=== PATIENT | male | born 1980 | race Caucasian/White ===

== ENCOUNTER 2017-05-10 21:20 | Observation (INO) | payer MEDICARE, MEDICAID ==
[2017-05-10] MEDS ORDERED: Albuterol/Ipratropium 3.0-0.5 MG/3 ML Neb Soln NEB ONE (21:39)
[2017-05-10] MEDS ORDERED: Sodium Chloride 0.9% 10 ML Syringe FLUSH PRN (21:40)
[2017-05-10] MEDS ORDERED: methylPREDNISolone Sodium Succinate 125 MG/2 ML SDV IVPUSH ONE (22:24)
[2017-05-10 22:34] LABS: CHLORIDE,CL 104 mmol/L (98-107); SODIUM,NA 140 mmol/L (136-145)
--- NOTE | 2017-05-10 23:10 | EDM.PDOC ---
ED HPI GENERAL MEDICAL PROBLEM - General Chief Complaint: Respiratory Problem Stated Complaint: wheezing, gen. weakness Time Seen by Provider: 05/10/17 21:21 - History of Present Illness INITIAL COMMENTS - FREE TEXT/NARRATIVE: Patient is brought to the emergency room at [facility] with shortness of breath, raspy cough, and wheezing. It is unclear when his symptoms exactly started. His old records state that he does have a chronic cough. The patient was seen at [facility] in [place] today for these same symptoms. The provider's notes from today's visit have not been completed so I'm unsure what the patient is diagnosed with and/or treatments. I did review his laboratory work from [place] which looked to be normal. The patient's influenza swab was also normal today. The father states that the patient's symptoms have progressively gotten worse throughout the day today. The patient does have a history of mild heart failure and a history of valve replacement. The patient's last echocardiogram showed an EF of 45%, therefore cardiology apparently was going to start the patient on Coreg and lisinopril. In reviewing [place] notes, it is unclear whether or not the patient has been started on these medications. The patient's Residential medication list states he is currently not taking Lisinopril, but is taking the Coreg at a dose of 3.125 BID. It is possible that the Coreg is contributing to the patient's a wheezing. No chest pain. No abdominal complaints. No edema. Lungs do not sound wet at this point. - Related Data Allergies Allergy/AdvReac Type Severity Reaction Status Date / Time pollen extracts Allergy Cannot Verified 05/10/17 22:38 Remember Home Meds: Home Meds Acetaminophen/Diphenhydramine [Pain Relief Pm Caplet] 1 each PO BEDTIME [History] Amoxicillin 2,000 mg PO ASDIRECTED PRN 05/10/17 [History] Aspirin [Halfprin] 81 mg PO DAILY 05/10/17 [History] Benzoyl Peroxide [Acne Cleansing Bar] 1 each TP DAILY 05/10/17 [History] Cephalexin 500 mg PO BID 05/10/17 [History] Docusate Sodium [Doc-Q-Lace] 100 mg PO DAILY 05/10/17 [History] Esomeprazole [NexIUM] 40 mg PO DAILY 05/10/17 [History] Levothyroxine [Sythroid] 100 mcg PO DAILY 05/10/17 [History] Loratadine 10 mg PO DAILY 05/10/17 [History] Multivitamins/Iron/Folic Acid [Cerovite Advanced Formula Tablet] 1 tab PO DAILY 05/10/17 [History] Ranitidine [Zantac] 75 mg PO BID 05/10/17 [History] Warfarin Sodium [Jantoven] 2.5 mg PO ASDIRECTED 05/10/17 [History] Warfarin Sodium [Jantoven] 5 mg PO ASDIRECTED 05/10/17 [History] Past Medical History HEENT History: Reports: Allergic Rhinitis, Cataract, Hard of Hearing, Other ( See Below) Other HEENT History: myopia, anisometropia-both, astigmatism Cardiovascular History: Reports: Other (See Below) Other Cardiovascular History: mild left ventricular systolic dysfunction, PVCs Gastrointestinal History: Reports: Other (See Below) Other Gastrointestinal History: small antral ulcer and duodentitis, epigastric hernia, dysphagia Psychiatric History: Reports: Developmental Delay, Other (See Below) Other Psychiatric History: impulse control d/o, downs syndrome Endocrine/Metabolic History: Reports: Hypothyroidism Hematologic History: Reports: Polycythemia Dermatologic History: Reports: Other (See Below) Other Dermatologic History: lipomatosis, acne vulgaris - Past Surgical History HEENT Surgical History: Reports: Other (See Below) Other HEENT Surgeries/Procedures: I & D left eyelid abscess, Cardiovascular Surgical History: Reports: Valve Replacement, Other (See Below) Other Cardiovascular Surgeries/Procedures: complete atrioventricular canal repair GI Surgical History: Reports: EGD Male Surgical History: Reports: Other (See Below) Other Male Surgeries/Procedures: testicular surgery for undescended testicles Social & Family History - Tobacco Use Smoking Status *Q: Never Smoker - Recreational Drug Use Recreational Drug Use: No ED ROS GENERAL - Review of Systems Review Of Systems: See Below Constitutional: Reports: Fever. Denies: Chills, Weakness, Decreased Appetite Respiratory: Reports: Shortness of Breath, Wheezing, Cough. Denies: Sputum Cardiovascular: Denies: Chest Pain, Palpitations GI/Abdominal: Denies: Abdominal Pain, Nausea, Vomiting Skin: Reports: No Symptoms Neurological: Reports: No Symptoms ED EXAM, GENERAL - Physical Exam Exam: See Below Exam Limited By: No Limitations General Appearance: Alert, No Apparent Distress Respiratory/Chest: No Respiratory Distress, Chest Non-Tender, Rhonchi, Wheezing Cardiovascular: Normal Peripheral Pulses, Regular Rate, Rhythm Peripheral Pulses: 2+: Radial (L), Radial (R) GI/Abdominal: Normal Bowel Sounds, Soft, Non-Tender Neurological: Alert, Normal Cognition (for developmental level) Skin Exam: Warm, Dry, Intact, Normal Color, No Rash Course - Vital Signs Last Recorded V/S: Last Vital Signs Temp 37.4 C 05/10/17 21:33 Pulse 72 05/10/17 21:33 Resp 24 H 05/10/17 21:33 BP 94/56 L 05/10/17 21:33 Pulse Ox 91 L 05/10/17 21:33 - Orders/Labs/Meds Orders: Active Orders 24 hr Category Date Time Status Admission Status [Patient Status] [ADT] Routine ADT 05/10/17 22:52 Active RT Aerosol Therapy [RC] ASDIRECTED Care 05/10/17 21:40 Active Chest 2V [CR] Stat Exams 05/10/17 21:39 Taken CULTURE BLOOD [BC] Stat Lab 05/10/17 21:30 Results CULTURE BLOOD [BC] Stat Lab 05/10/17 21:45 Received Sodium Chloride 0.9% [Saline Flush] Med 05/10/17 21:40 Active 10 ml FLUSH ASDIRECTED PRN Blood Culture x2 Reflex Set [OM.PC] Stat Oth 05/10/17 21:39 Ordered Peripheral IV Insertion Adult [OM.PC] Routine Oth 05/10/17 21:40 Ordered Medication Orders Sodium Chloride (Saline Flush) 10 ml FLUSH ASDIRECTED PRN PRN Reason: Keep Vein Open Last Admin: 05/10/17 22:43 Dose: 10 ml Labs: Laboratory Tests 05/10/17 05/10/17 05/10/17 Range/Units 21:45 21:45 21:45 WBC 4.2 (4.0-10.0) x10^3/uL RBC 4.78 (4.5-6.0) x10^6/uL Hgb 15.8 (14.0-18.0) g/dL Hct 45.1 (40.0-52.0) % MCV 94.4 H (78.0-93.0) fL MCH 33.1 H (26.0-32.0) pg MCHC 35.0 (32.0-36.0) g/dL RDW Coeff of Laurie 14.5 (10.0-15.0) % Plt Count 163 (130-400) x10^3/uL Neut % (Auto) 67.5 (50.0-80.0) % Lymph % (Auto) 18.8 L (25.0-50.0) % Garland % (Auto) 12.5 H (2.0-11.0) % Eos % (Auto) 1.0 (0.0-4.0) % Baso % (Auto) 0.2 (0.2-1.2) % Sodium 140 (136-145) mmol/L Potassium 4.2 (3.5-5.1) mmol/L Chloride 104 (98-107) mmol/L Carbon Dioxide 29 (21-32) mmol/L BUN 19 H (7-18) mg/dL Creatinine 1.2 (0.70-1.30) mg/dL Est Cr Clr Drug Dosing TNP Estimated GFR (MDRD) > 60 Glucose 105 (74-106) mg/dL Lactic Acid 0.6 (0.4-2.0) mmol/L Calcium 8.7 (8.5-10.1) mg/dL Corrected Calcium 9.26 (8.5-10.1) mg/dL Total Bilirubin 0.6 (0.2-1.0) mg/dL AST 30 (15-37) U/L ALT 39 (16-63) U/L Alkaline Phosphatase 96 (46-116) U/L C-Reactive Protein 5.5 H (<=0.9) mg/dL NT-Pro-B Natriuret Pep 286 H (<=125) pg/mL Total Protein 6.6 (6.4-8.2) g/dL Albumin 3.3 L (3.4-5.0) g/dL Globulin 3.3 Albumin/Globulin Ratio 1.00 Urine Color (YELLOW) Urine Appearance (CLEAR) Urine pH (5.0-8.0) Ur Specific Allen Urine Protein (NEGATIVE) mg/dL Urine Glucose (UA) (NEGATIVE) mg/dL Urine Ketones (NEGATIVE) mg/dL Urine Occult Blood (NEGATIVE) Urine Nitrite (NEGATIVE) Urine Bilirubin (NEGATIVE) Urine Urobilinogen (0.2) EU/dL Ur Leukocyte Esterase (NEGATIVE) Urine RBC (NOT SEEN) /HPF Urine WBC (NOT SEEN) /HPF Ur Squamous Epith Cells (NEGATIVE) /HPF Urine Bacteria (NEGATIVE) /HPF Urine Mucus (NEGATIVE) /LPF 05/10/17 Range/Units 22:23 WBC (4.0-10.0) x10^3/uL RBC (4.5-6.0) x10^6/uL Hgb (14.0-18.0) g/dL Hct (40.0-52.0) % MCV (78.0-93.0) fL MCH (26.0-32.0) pg MCHC (32.0-36.0) g/dL RDW Coeff of Laurie (10.0-15.0) % Plt Count (130-400) x10^3/uL Neut % (Auto) (50.0-80.0) % Lymph % (Auto) (25.0-50.0) % Garland % (Auto) (2.0-11.0) % Eos % (Auto) (0.0-4.0) % Baso % (Auto) (0.2-1.2) % Sodium (136-145) mmol/L Potassium (3.5-5.1) mmol/L Chloride (98-107) mmol/L Carbon Dioxide (21-32) mmol/L BUN (7-18) mg/dL Creatinine (0.70-1.30) mg/dL Est Cr Clr Drug Dosing Estimated GFR (MDRD) Glucose (74-106) mg/dL Lactic Acid (0.4-2.0) mmol/L Calcium (8.5-10.1) mg/dL Corrected Calcium (8.5-10.1) mg/dL Total Bilirubin (0.2-1.0) mg/dL AST (15-37) U/L ALT (16-63) U/L Alkaline Phosphatase (46-116) U/L C-Reactive Protein (<=0.9) mg/dL NT-Pro-B Natriuret Pep (<=125) pg/mL Total Protein (6.4-8.2) g/dL Albumin (3.4-5.0) g/dL Globulin Albumin/Globulin Ratio Urine Color Yellow (YELLOW) Urine Appearance Clear (CLEAR) Urine pH 7.0 (5.0-8.0) Ur Specific Allen 1.010 Urine Protein Negative (NEGATIVE) mg/dL Urine Glucose (UA) Negative (NEGATIVE) mg/dL Urine Ketones Negative (NEGATIVE) mg/dL Urine Occult Blood Negative (NEGATIVE) Urine Nitrite Negative (NEGATIVE) Urine Bilirubin Negative (NEGATIVE) Urine Urobilinogen 0.2 (0.2) EU/dL Ur Leukocyte Esterase Negative (NEGATIVE) Urine RBC 0-5 (NOT SEEN) /HPF Urine WBC 0-5 (NOT SEEN) /HPF Ur Squamous Epith Cells Not seen (NEGATIVE) /HPF Urine Bacteria Rare (NEGATIVE) /HPF Urine Mucus Not seen (NEGATIVE) /LPF Meds: Medications Generic Name Dose Route Start Last Admin Trade Name Freq PRN Reason Stop Dose Admin Sodium Chloride 10 ml 05/10/17 21:40 05/10/17 22:43 Saline Flush FLUSH 10 ml ASDIRECTED PRN Administration Keep Vein Open Discontinued Medications Generic Name Dose Route Start Last Admin Trade Name Freq PRN Reason Stop Dose Admin Albuterol/Ipratropium 3 ml 05/10/17 21:39 05/10/17 21:44 Duoneb 3.0-0.5 Mg/3 Ml NEB 05/10/17 21:40 3 ml ONETIME ONE Administration Methylprednisolone Sodium Succinate 125 mg 05/10/17 22:24 05/10/17 22:42 Solu-Medrol IVPUSH 05/10/17 22:25 125 mg ONETIME ONE Administration Departure - Departure Time of Disposition: 23:11 Disposition: Refer to Observation Condition: Good Clinical Impression: Hypoxia, Wheezing - Discharge Information - Problem List Review Problem List Initiated/Reviewed/Updated: Yes - My Orders Last 24 Hours: My Active Orders 05/10/17 21:30 CULTURE BLOOD [BC] Stat 05/10/17 21:39 Chest 2V [CR] Stat Blood Culture x2 Reflex Set [OM.PC] Stat 05/10/17 21:40 RT Aerosol Therapy [RC] ASDIRECTED Sodium Chloride 0.9% [Saline Flush] 10 ml FLUSH ASDIRECTED PRN Peripheral IV Insertion Adult [OM.PC] Routine 05/10/17 21:45 CULTURE BLOOD [BC] Stat 05/10/17 22:52 Admission Status [Patient Status] [ADT] Routine - Assessment/Plan Admission H&P: Please use this note as an admission H&P Last 24 Hours: My Active Orders 05/10/17 21:30 CULTURE BLOOD [BC] Stat 05/10/17 21:39 Chest 2V [CR] Stat Blood Culture x2 Reflex Set [OM.PC] Stat 05/10/17 21:40 RT Aerosol Therapy [RC] ASDIRECTED Sodium Chloride 0.9% [Saline Flush] 10 ml FLUSH ASDIRECTED PRN Peripheral IV Insertion Adult [OM.PC] Routine 05/10/17 21:45 CULTURE BLOOD [BC] Stat 05/10/17 22:52 Admission Status [Patient Status] [ADT] Routine
[2017-05-11] MEDS: Albuterol/Ipratropium 3.0-0.5 MG/3 ML Neb Soln NEB SCH ×4 (00:17→11:05)
--- NOTE | 2017-05-11 02:39 | PCM.HP ---
H&P History of Present Illness - General Date of Service: 05/10/17 Admit Problem/Dx: Admission Diagnosis/Problem Admission Diagnosis/Problem Hypoxia Wheezing Source of Information: Family, Old Records, RN, RN Notes Reviewed History Limitations: Reports: No Limitations - History of Present Illness Initial Comments - Free Text/Narative: Patient is brought to the emergency room at [facility] with shortness of breath, raspy cough, and wheezing. It is unclear when his symptoms exactly started. His old records state that he does have a chronic cough. The patient was seen at [facility] in [place] [employer] today for these same symptoms. The provider's notes from today's visit have not been completed so I'm unsure what the patient is diagnosed with and/or treatments. I did review his laboratory work from [place] which looked to be normal. The patient's influenza swab was also normal today. The father states that the patient's symptoms have progressively gotten worse throughout the day today. The patient does have a history of mild heart failure and a history of valve replacement. The patient's last echocardiogram showed an EF of 45%, therefore cardiology apparently was going to start the patient on Coreg and lisinopril. In reviewing [place] notes, it is unclear whether or not the patient has been started on these medications. The patient's [facility] medication list states he is currently not taking Lisinopril, but is taking the Coreg at a dose of 3.125 BID. It is possible that the Coreg is contributing to the patient's a wheezing. No chest pain. No abdominal complaints. No edema. Lungs do not sound wet at this point. Patient is not exhibiting any signs of angioedema. Onset of Symptoms: Reports: Unknown/Unsure - Related Data Allergies/Adverse Reactions: Allergies Allergy/AdvReac Type Severity Reaction Status Date / Time pollen extracts Allergy Cannot Verified 05/10/17 22:38 Remember Home Medications: Home Meds Acetaminophen/Diphenhydramine [Pain Relief Pm Caplet] 1 each PO BEDTIME [History] Amoxicillin 2,000 mg PO ASDIRECTED PRN 05/10/17 [History] Aspirin [Halfprin] 81 mg PO DAILY 05/10/17 [History] Benzoyl Peroxide [Acne Cleansing Bar] 1 each TP DAILY 05/10/17 [History] Carvedilol [Coreg] 3.125 mg PO BID 05/10/17 [History] Cephalexin 500 mg PO BID 05/10/17 [History] Docusate Sodium [Doc-Q-Lace] 100 mg PO DAILY 05/10/17 [History] Esomeprazole [NexIUM] 40 mg PO DAILY 05/10/17 [History] Levothyroxine [Sythroid] 100 mcg PO DAILY 05/10/17 [History] Loratadine 10 mg PO DAILY 05/10/17 [History] Multivitamins/Iron/Folic Acid [Cerovite Advanced Formula Tablet] 1 tab PO DAILY 05/10/17 [History] Ranitidine [Zantac] 75 mg PO BID 05/10/17 [History] Warfarin Sodium [Jantoven] 2.5 mg PO ASDIRECTED 05/10/17 [History] Warfarin Sodium [Jantoven] 5 mg PO ASDIRECTED 05/10/17 [History] Past Medical History HEENT History: Reports: Allergic Rhinitis, Cataract, Hard of Hearing, Other ( See Below) Other HEENT History: myopia, anisometropia-both, astigmatism Cardiovascular History: Reports: Other (See Below) Other Cardiovascular History: mild left ventricular systolic dysfunction, PVCs Gastrointestinal History: Reports: Other (See Below) Other Gastrointestinal History: small antral ulcer and duodentitis, epigastric hernia, dysphagia Psychiatric History: Reports: Developmental Delay, Other (See Below) Other Psychiatric History: impulse control d/o, downs syndrome Endocrine/Metabolic History: Reports: Hypothyroidism Hematologic History: Reports: Polycythemia Dermatologic History: Reports: Other (See Below) Other Dermatologic History: lipomatosis, acne vulgaris - Infectious Disease History Infectious Disease History: Reports: None - Past Surgical History HEENT Surgical History: Reports: Other (See Below) Other HEENT Surgeries/Procedures: I & D left eyelid abscess, Cardiovascular Surgical History: Reports: Valve Replacement, Other (See Below) Other Cardiovascular Surgeries/Procedures: complete atrioventricular canal repair GI Surgical History: Reports: EGD Male Surgical History: Reports: Other (See Below) Other Male Surgeries/Procedures: testicular surgery for undescended testicles Social & Family History - Family History Family Medical History: Noncontributory - Tobacco Use Smoking Status *Q: Never Smoker Second Hand Smoke Exposure: No - Caffeine Use Caffeine Use: Reports: Soda - Recreational Drug Use Recreational Drug Use: No H&P Review of Systems - Review of Systems: Review Of Systems: ROS reveals no pertinent complaints other than HPI. Exam - Exam Exam: See Below - Vital Signs Vital Signs: Last Vital Signs Temp 36.9 C 05/11/17 02:00 Pulse 63 05/11/17 02:00 Resp 18 05/11/17 02:00 BP 95/49 L 05/11/17 02:00 Pulse Ox 95 05/11/17 02:00 Weight: 50.122 kg - Exam Quality Assessment: Supplemental Oxygen General: Alert, Cooperative Lungs: Normal Respiratory Effort, Rhonchi, Wheezing Cardiovascular: Regular Rate, Regular Rhythm GI/Abdominal Exam: Normal Bowel Sounds, Soft, Non-Tender Extremities: Normal Inspection Peripheral Pulses: 2+: Radial (L), Radial (R) Skin: Warm, Dry, Intact Neuro Extensive - Mental Status: Alert, Normal Cognition (appropriate for Trisomy 21) - Patient Data Result Diagrams: 05/10/17 21:45 05/10/17 21:45 *Q Meaningful Use (ADM) - VTE *Q VTE Criteria *Q: VTE Mechanical Contraindications *Q: At Risk for Falls - Stroke *Q Stroke Criteria *Q: - AMI *Q AMI Criteria *Q: - Problem List (1) Hypoxia SNOMED Code(s): 005981819 ICD Code: R09.02 - HYPOXEMIA Status: Acute Priority: High Current Visit : Yes Onset Date: ~05/10/17 (2) Wheezing SNOMED Code(s): 87719010 ICD Code: R06.2 - WHEEZING Status: Acute Priority: Medium Current Visit : Yes Onset Date: ~05/10/17 (3) Down's syndrome SNOMED Code(s): 35370838 ICD Code: Q90.9 - DOWN SYNDROME, UNSPECIFIED Status: Chronic Current Visit: No (4) Atrioventricular canal (AVC), complete SNOMED Code(s): 312087016 ICD Code: Q21.2 - ATRIOVENTRICULAR SEPTAL DEFECT Status: Chronic Current Visit: No (5) Mild left ventricular systolic dysfunction SNOMED Code(s): 016380071 ICD Code: I51.9 - HEART DISEASE, UNSPECIFIED Status: Chronic Current Visit: No (6) History of mitral valve replacement SNOMED Code(s): 9424372550993 ICD Code: Z95.2 - PRESENCE OF PROSTHETIC HEART VALVE Status: Chronic Current Visit: No (7) Chronic anticoagulation SNOMED Code(s): 262108661 ICD Code: Z79.01 - INDUSTRIAL CHEMIST (CURRENT) USE OF ANTICOAGULANTS Status: Chronic Current Visit: No (8) Hypothyroidism (acquired) SNOMED Code(s): 877880171 ICD Code: E03.9 - HYPOTHYROIDISM, UNSPECIFIED Status: Chronic Current Visit: No (9) Cognitive developmental delay SNOMED Code(s): 357221161 ICD Code: F81.9 - DEVELOPMENTAL DISORDER OF SCHOLASTIC SKILLS, UNSPECIFIED Status: Chronic Current Visit: No Problem List Initiated/Reviewed/Updated: Yes Orders Last 24hrs: Active Orders 24 hr Category Date Time Status Patient Status [ADT] Routine ADT 05/10/17 23:17 Active Height and Weight [RC] UPON Care 05/10/17 23:17 Active Intake and Output [RC] QSHIFT Care 05/10/17 23:18 Active May Shower [RC] ASDIRECTED Care 05/10/17 23:17 Active Oxygen Therapy [RC] PRN Care 05/10/17 23:17 Active Pulse Oximetry [RC] 06,10,14,18,22,02 Care 05/10/17 23:18 Active RT Aerosol Therapy [RC] 03,07,11,15,19,23 Care 05/10/17 23:20 Active Up With Assistance [RC] ASDIRECTED Care 05/10/17 23:17 Active VTE/DVT Education [RC] PER UNIT ROUTINE Care 05/10/17 23:17 Active Vital Signs [RC] 06,10,14,18,22,02 Care 05/10/17 23:17 Active Respiratory Care Assess and Treatment [CONS] Routine Cons 05/10/17 23:17 Active Regular Diet [DIET] Diet 05/10/17 Breakfast Active BASIC METABOLIC PANEL,BMP [CHEM] Routine Lab 05/11/17 05:11 Ordered CBC WITH AUTO DIFF [HEME] Routine Lab 05/11/17 05:11 Ordered INR,PT,PROTHROMBIN TIME [COAG] Routine Lab 05/11/17 05:11 Ordered Acetaminophen/Diphenhydramine [Pain Relief Pm Caplet] Med 05/11/17 20:00 Stop Req 1 each PO BEDTIME Albuterol/Ipratropium [DuoNeb 3.0-0.5 MG/3 ML] Med 05/10/17 23:30 Active 3 ml NEB Q4HRRT Aspirin [Halfprin] Med 05/11/17 08:00 Active 81 mg PO DAILY Cephalexin [Keflex] Med 05/11/17 08:00 Active 500 mg PO BID Docusate Sodium [Colace] Med 05/11/17 08:00 Active 100 mg PO DAILY Famotidine [Pepcid] Med 05/11/17 08:00 Active 10 mg PO BID Levothyroxine [Synthroid] Med 05/11/17 08:00 Active 100 mcg PO DAILY Loratadine [Claritin] Med 05/11/17 08:00 Active 10 mg PO DAILY Omeprazole Med 05/11/17 07:00 Active 40 mg PO ACBRK Warfarin [Coumadin] Med 05/13/17 20:00 Active 2.5 mg PO [email or web address] Warfarin [Coumadin] Med 05/11/17 20:00 Active 5 mg PO [email or web address] Resuscitation Status Routine Resus Stat 05/10/17 23:17 Ordered Medication Orders Albuterol/Ipratropium (Duoneb 3.0-0.5 Mg/3 Ml) 3 ml NEB Q4HRRT [facility] Last Admin: 05/11/17 00:17 Dose: 3 ml Aspirin (Halfprin) 81 mg PO DAILY [facility] Cephalexin (Keflex) 500 mg PO BID [facility] Docusate Sodium (Colace) 100 mg PO DAILY [facility] Famotidine (Pepcid) 10 mg PO BID [facility] Levothyroxine Sodium (Synthroid) 100 mcg PO DAILY [facility] Loratadine (Claritin) 10 mg PO DAILY [facility] Non-Formulary Medication (Acetaminophen/Diphenhydramine [Pain Relief Pm Caplet] ) 1 each PO BEDTIME [facility] Stop: 05/11/17 01:20 Omeprazole (Omeprazole) 40 mg PO ACBRK [facility] Sodium Chloride (Saline Flush) 10 ml FLUSH ASDIRECTED PRN PRN Reason: Keep Vein Open Last Admin: 05/10/17 22:43 Dose: 10 ml Warfarin Sodium (Coumadin) 2.5 mg PO [email or web address] [facility] Warfarin Sodium (Coumadin) 5 mg PO [email or web address] [facility] Assessment/Plan Comment:: 36-year-old male patient with a past medical history of Down syndrome, AV septal defect, hypothyroidism, mitral valve replacement, and developmental delay is admitted to the observation unit at [facility] with admitting diagnosis of wheezing and hypoxia. The patient's laboratory work is basically unremarkable as well as the patient's chest x-ray. The patient does not have a history of asthma or reactive airway disease. It could be quite possible that the patient is having the wheezing and shortness of breath due to Coreg which was recently started over the past couple of weeks. The patient has no known history of a reaction to ARB's or ACEI's. The patient was started on Coreg due to a low ejection fraction of 45%. This was seen on an echocardiogram that was completed a couple of weeks ago. The patient was seen at [facility] today for fevers, wheezing, and shortness of breath. The patient's laboratory work earlier today were normal. The patient's chest x-ray and influenza screen were also negative. The chest x-ray the patient had the emergency room earlier this evening showed possible mild pulmonary edema, however the patient's BNP was slightly elevated at 286 and the patient does not have any peripheral edema. The patient does have lower blood pressures with a baseline of 100/60. The etiology of the wheezing and hypoxia is unclear at this time. The patient was given a DuoNeb and Solu-Medrol emergency room which did help his wheezing. At this time we will hold the Coreg to see if the wheezing and hypoxia normalizes. We will not continue the Solu-Medrol unless the wheezing worsens. We will continue the patient's home medications without any changes. The patient is a full code per the father's wishes. DVT prophylaxis is early ambulation and also the patient is currently on Coumadin. The patient will be transferred to a higher level care should the need arise. I do not anticipate the patient to be admitted greater than 48 hours. I will also contact [facility] cardiology department tomorrow morning to discuss the Coreg.
[2017-05-11] MEDS: Omeprazole 20 MG Cap.CR PO SCH ×2 (05:37→06:14)
[2017-05-11] MEDS ORDERED: Famotidine 20 MG Tab PO SCH (08:00)
[2017-05-11] MEDS ORDERED: Docusate Sodium 100 MG Cap PO SCH (08:00)
[2017-05-11] MEDS ORDERED: Aspirin 81 MG Tab.EC PO SCH (08:00)
[2017-05-11] MEDS ORDERED: Cephalexin 500 MG Cap PO SCH (08:00)
[2017-05-11] MEDS ORDERED: Loratadine 10 MG Tab PO SCH (08:00)
[2017-05-11] MEDS ORDERED: Levothyroxine 100 MCG Tab PO SCH (08:00)
[2017-05-11 08:21] LABS: CHLORIDE,CL 105 mmol/L (98-107); SODIUM,NA 142 mmol/L (136-145)
--- NOTE | 2017-05-11 08:57 | PCM.PN ---
- General Info Date of Service: 05/11/17 Admission Dx/Problem (Free Text): Admission Diagnosis/Problem Admission Diagnosis/Problem Hypoxia Wheezing Functional Status: Reports: Pain Controlled, Tolerating Diet - Review of Systems General: Reports: Weakness. Denies: Fatigue, Malaise, Chills, Night Sweats HEENT: Reports: No Symptoms Pulmonary: Reports: Shortness of Breath Cardiovascular: Reports: Dyspnea on Exertion Gastrointestinal: Reports: No Symptoms Musculoskeletal: Reports: No Symptoms Skin: Reports: No Symptoms Neurological: Reports: No Symptoms Psychiatric: Reports: No Symptoms - Patient Data Vitals - Most Recent: Last Vital Signs Temp 36.6 C 05/11/17 05:55 Pulse 69 05/11/17 05:55 Resp 18 05/11/17 05:55 BP 100/56 L 05/11/17 05:55 Pulse Ox 96 05/11/17 07:22 Weight - Most Recent: 50.122 kg I&O - Last 24 Hours: Intake & Output 05/10/17 05/11/17 05/11/17 22:59 06:59 14:59 Intake Total 600 Balance 600 Lab Results Last 24 Hours: Laboratory Results - last 24 hr 05/11/17 05/11/17 05/11/17 Range/Units 07:41 07:41 07:41 WBC 2.8 L (4.0-10.0) x10^3/uL RBC 4.92 (4.5-6.0) x10^6/uL Hgb 16.3 (14.0-18.0) g/dL Hct 46.4 (40.0-52.0) % MCV 94.3 H (78.0-93.0) fL MCH 33.1 H (26.0-32.0) pg MCHC 35.1 (32.0-36.0) g/dL RDW Coeff of Laurie 14.2 (10.0-15.0) % Plt Count 158 (130-400) x10^3/uL Neut % (Auto) 79.1 (50.0-80.0) % Lymph % (Auto) 19.1 L (25.0-50.0) % [place] % (Auto) 1.8 L (2.0-11.0) % Eos % (Auto) 0.0 (0.0-4.0) % Baso % (Auto) 0.0 L (0.2-1.2) % PT 33.7 H (9.8-11.8) SEC INR 3.2 (2.0-3.5) Sodium 142 (136-145) mmol/L Potassium 3.9 (3.5-5.1) mmol/L Chloride 105 (98-107) mmol/L Carbon Dioxide 29 (21-32) mmol/L BUN 20 H (7-18) mg/dL Creatinine 1.2 (0.70-1.30) mg/dL Est Cr Clr Drug Dosing 59.03 mL/min Estimated GFR (MDRD) > 60 Glucose 175 H (74-106) mg/dL Calcium 8.3 L (8.5-10.1) mg/dL Med Orders - Current: Current Medications Albuterol/Ipratropium (Duoneb 3.0-0.5 Mg/3 Ml) 3 ml NEB Q4HRRT [facility] Last Admin: 05/11/17 07:17 Dose: 3 ml Aspirin (Halfprin) 81 mg PO DAILY [facility] Last Admin: 05/11/17 07:45 Dose: 81 mg Cephalexin (Keflex) 500 mg PO BID [facility] Last Admin: 05/11/17 07:45 Dose: 500 mg Docusate Sodium (Colace) 100 mg PO DAILY [facility] Last Admin: 05/11/17 07:45 Dose: 100 mg Famotidine (Pepcid) 10 mg PO BID [facility] Last Admin: 05/11/17 07:45 Dose: 10 mg Levothyroxine Sodium (Synthroid) 100 mcg PO DAILY [facility] Last Admin: 05/11/17 07:45 Dose: 100 mcg Loratadine (Claritin) 10 mg PO DAILY [facility] Last Admin: 05/11/17 07:45 Dose: 10 mg Non-Formulary Medication (Acetaminophen/Diphenhydramine [Pain Relief Pm Caplet] ) 1 each PO BEDTIME [facility] Stop: 05/11/17 01:20 Omeprazole (Omeprazole) 40 mg PO ACBRK [facility] Last Admin: 05/11/17 06:14 Dose: Not Given Sodium Chloride (Saline Flush) 10 ml FLUSH ASDIRECTED PRN PRN Reason: Keep Vein Open Last Admin: 05/10/17 22:43 Dose: 10 ml Warfarin Sodium (Coumadin) 2.5 mg PO [email or web address] [facility] Warfarin Sodium (Coumadin) 5 mg PO [email or web address] [facility] Discontinued Medications Albuterol/Ipratropium (Duoneb 3.0-0.5 Mg/3 Ml) 3 ml NEB ONETIME ONE Stop: 05/10/17 21:40 Last Admin: 05/10/17 21:44 Dose: 3 ml Methylprednisolone Sodium Succinate (Solu-Medrol) 125 mg IVPUSH ONETIME ONE Stop: 05/10/17 22:25 Last Admin: 05/10/17 22:42 Dose: 125 mg - Exam Quality Assessment: Supplemental Oxygen, DVT Prophylaxis, Skin Breakdown General: Alert (Pt is limited to his understanding and communication due to learning disability ) HEENT: Pupils Equal, EOMI Lungs: Decreased Breath Sounds, Crackles, Wheezing Cardiovascular: Regular Rate GI/Abdominal Exam: Normal Bowel Sounds Extremities: Normal Inspection, Normal Range of Motion, Non-Tender, No Pedal Edema, Normal Capillary Refill Peripheral Pulses: 2+: Radial (L), Radial (R), Dorsalis Pedis (L), Dorsalis Pedis (R) Skin: Warm, Dry, Intact Psy/Mental Status: Alert, Normal Affect, Normal Mood Physical Findings Comments:: Pt continues to have low O2 saturation when oxygen is removed. Saturations are 85-92% without O2. Continued wheezing with mild crackles noted on the right lower base. Pt shakes his head yes when asking if he is SOB. Talked with father who is guardian who states he has stressed more discomfort with SOB, however pt does not like keeping the O2 on his face. Pt denies any pain at this time and appears to be comfortable. The plan is to repeat x-ray, place pt back on O2- for he was off O2 during breakfast to see how he toleratd. Will continue to neb treatments. After obtaining x-ray contact will be made with his table runner or table runner simulation educator regarding the cogentin. Will will continue to hold it until discussion. - Problem List & Annotations (1) CHF (congestive heart failure) SNOMED Code(s): 41191857 Code(s): I50.9 - HEART FAILURE, UNSPECIFIED Status: Acute Priority: Medium Current Visit: Yes Qualifiers: Heart failure chronicity: acute - Problem List Review Problem List Initiated/Reviewed/Updated: Yes - My Orders Last 24 Hours: My Active Orders 05/11/17 08:47 Chest 1V Frontal [CR] Routine 05/11/17 08:48 PRO B-TYPE NATRIUR PEPT,BNPPRO [CHEM] Routine - Plan Plan:: 36-year-old male patient with a past medical history of Down syndrome, AV septal defect, hypothyroidism, mitral valve replacement, and developmental delay is admitted to the observation unit at [facility] with admitting diagnosis of wheezing and hypoxia. The patient's laboratory work is basically unremarkable as well as the patient's chest x-ray. The patient does not have a history of asthma or reactive airway disease. It could be quite possible that the patient is having the wheezing and shortness of breath due to Coreg which was recently started over the past couple of weeks. The patient has no known history of a reaction to ARB's or ACEI's. The patient was started on Coreg due to a low ejection fraction of 45%. This was seen on an echocardiogram that was completed a couple of weeks ago. The patient was seen at [facility] today for fevers, wheezing, and shortness of breath. The patient's laboratory work earlier today were normal. The patient's chest x-ray and influenza screen were also negative. The chest x-ray the patient had the emergency room earlier this evening showed possible mild pulmonary edema, however the patient's BNP was slightly elevated at 286 and the patient does not have any peripheral edema. The patient does have lower blood pressures with a baseline of 100/60. The etiology of the wheezing and hypoxia is unclear at this time. The patient was given a DuoNeb and Solu-Medrol emergency room which did help his wheezing. At this time we will hold the Coreg to see if the wheezing and hypoxia normalizes. We will not continue the Solu-Medrol unless the wheezing worsens. We will continue the patient's home medications without any changes. The patient is a full code per the father's wishes. DVT prophylaxis is early ambulation and also the patient is currently on Coumadin. The patient will be transferred to a higher level care should the need arise. I do not anticipate the patient to be admitted greater than 48 hours. I will also contact [facility] cardiology department tomorrow morning to discuss the Coreg. 05/11/2017: Pt has continued to de-sat throughout the night requiring O2 of 2-4L to keep sats above 90%. This am labs, x-ray, and abgs completed. Pt continues to need O2 and BNP remains elevated.Contact to Dr. Boss cardiology at [facility] in [place] was completed. He felt that the coreg was probably not the cause of the wheezing , SOB, and de-sat. He would not advise restarting until symptoms have resolved but feels this pt is more in congestive heart failure needing diuretics. Contact with Dr. Mena to transfer the pt from observation to acute care. Dr. Mena has requested since we do to not having echo on hand and his complex cardiac issues he would be better served were cardiology is present. Contact made with [facility] Dr. Crowley hospitalist who has accept care and pt will be transferred to the [facility].
[2017-05-11] MEDS ORDERED: Furosemide 20 MG/2 ML VIAL IV ONE (11:39)
--- NOTE | 2017-05-11 12:13 | PCM.DCSUM1 ---
Discharge Summary - Hospital Course HPI Initial Comments: Patient is brought to the emergency room at [facility] with shortness of breath, raspy cough, and wheezing. It is unclear when his symptoms exactly started. His old records state that he does have a chronic cough. The patient was seen at [facility] in [place] today for these same symptoms. The provider's notes from today's visit have not been completed so I'm unsure what the patient is diagnosed with and/or treatments. I did review his laboratory work from [place] which looked to be normal. The patient's influenza swab was also normal today. The father states that the patient's symptoms have progressively gotten worse throughout the day today. The patient does have a history of mild heart failure and a history of valve replacement. The patient's last echocardiogram showed an EF of 45%, therefore cardiology apparently was going to start the patient on Coreg and lisinopril. With the unkown cause the pt 's SOB and wheezing the ER provider held the coreg and admitted for observation due to hypoxia. Throughout the night the pt received duonebs and O2. Pt continue to have de-sats when O2 was removed. This am labs were repeated, along with ABG, chest x-ray which continue to reveal an elevated BNP along with crackles on the right lower lung and O2 requirement of 2-4L NC. Cardiology was contacted regarding the held coreg. [employer] Consultant felt this is unlikely the cause of the cough, wheezing, and SOB. He agreed a diuretic would be appropriate and continue to treat the CHF. Contact was made with Dr. Mena to transfer the pt from observation to acute care. Due to the pt's complex cardiac history she advised this pt would be better served in a tertiary center with cardiology and echo capabilities. [facility] Crowley accepted care. - Discharge Data Discharge Date: 05/11/17 Discharge Disposition: DC/Tfer to Acute Hospital 02 Condition: Good - Discharge Diagnosis/Problem(s) (1) CHF (congestive heart failure) SNOMED Code(s): 31415344 ICD Code: I50.9 - HEART FAILURE, UNSPECIFIED Status: Acute Priority: Medium Current Visit: Yes Qualifiers: Heart failure chronicity: acute - Patient Summary/Data Consults: Consultations 05/10/17 23:17 Respiratory Care Assess and Treatment [CONS] Routine - Discharge Plan Home Medications: Home Meds Acetaminophen/Diphenhydramine [Pain Relief Pm Caplet] 1 each PO BEDTIME [History] Amoxicillin 2,000 mg PO ASDIRECTED PRN 05/10/17 [History] Aspirin [Halfprin] 81 mg PO DAILY 05/10/17 [History] Benzoyl Peroxide [Acne Cleansing Bar] 1 each TP DAILY 05/10/17 [History] Cephalexin 500 mg PO BID 05/10/17 [History] Docusate Sodium [Doc-Q-Lace] 100 mg PO DAILY 05/10/17 [History] Esomeprazole [NexIUM] 40 mg PO DAILY 05/10/17 [History] Levothyroxine [Synthroid] 100 mcg PO DAILY 05/10/17 [History] Loratadine 10 mg PO DAILY 05/10/17 [History] Multivitamins/Iron/Folic Acid [Cerovite Advanced Formula] 1 tab PO DAILY [History] Ranitidine [Zantac] 75 mg PO BID 05/10/17 [History] Warfarin Sodium [Jantoven] 2.5 mg PO ASDIRECTED 05/10/17 [History] Warfarin Sodium [Jantoven] 5 mg PO ASDIRECTED 05/10/17 [History] Albuterol/Ipratropium [DuoNeb 3.0-0.5 MG/3 ML] 3 ml NEB Q4HRRT neb 05/11/17 [Rx ] Aspirin [Halfprin] 81 mg PO DAILY tab.ec 05/11/17 [Rx] Docusate Sodium [Colace] 100 mg PO DAILY cap 05/11/17 [Rx] Famotidine [Pepcid] 10 mg PO BID tablet 05/11/17 [Rx] Loratadine [Claritin] 10 mg PO DAILY tablet 05/11/17 [Rx] Omeprazole 40 mg PO ACBRK cap.cr 05/11/17 [Rx] Sodium Chloride 0.9% [Saline Flush] 10 ml FLUSH ASDIRECTED PRN syringe [Rx] Forms: Interfacility Transfer EMTALA - General Info Functional Status: Reports: Pain Controlled, Tolerating Diet, Urinating - Review of Systems General: Reports: No Symptoms HEENT: Reports: No Symptoms Pulmonary: Reports: Shortness of Breath, Cough, Wheezing Cardiovascular: Reports: No Symptoms Gastrointestinal: Reports: No Symptoms Genitourinary: Reports: No Symptoms Musculoskeletal: Reports: No Symptoms Skin: Reports: No Symptoms Neurological: Reports: No Symptoms Psychiatric: Reports: No Symptoms - Patient Data Vitals - Most Recent: Last Vital Signs Temp 36.8 C 05/11/17 10:00 Pulse 73 05/11/17 10:00 Resp 20 05/11/17 10:00 BP 100/52 L 05/11/17 10:00 Pulse Ox 91 L 05/11/17 10:00 Weight - Most Recent: 50.122 kg I&O - Last 24 hours: Intake & Output 05/10/17 05/11/17 05/11/17 22:59 06:59 14:59 Intake Total 600 Balance 600 Lab Results - Last 24 hrs: Laboratory Results - last 24 hr 05/11/17 05/11/17 05/11/17 Range/Units 07:41 07:41 07:41 WBC 2.8 L (4.0-10.0) x10^3/uL RBC 4.92 (4.5-6.0) x10^6/uL Hgb 16.3 (14.0-18.0) g/dL Hct 46.4 (40.0-52.0) % MCV 94.3 H (78.0-93.0) fL MCH 33.1 H (26.0-32.0) pg MCHC 35.1 (32.0-36.0) g/dL RDW Coeff of Laurie 14.2 (10.0-15.0) % Plt Count 158 (130-400) x10^3/uL Neut % (Auto) 79.1 (50.0-80.0) % Lymph % (Auto) 19.1 L (25.0-50.0) % [place] % (Auto) 1.8 L (2.0-11.0) % Eos % (Auto) 0.0 (0.0-4.0) % Baso % (Auto) 0.0 L (0.2-1.2) % PT 33.7 H (9.8-11.8) SEC INR 3.2 (2.0-3.5) D-Dimer, Quantitative (<=0.58) mg/LFEU POC ABG pH (7.35-7.45) POC ABG pCO2 (35-45) mmHG POC ABG pO2 (80-105) mmHG POC ABG HCO3 (22-26) mmol/L POC ABG Total CO2 (23-27) mmol/L POC ABG O2 Sat (95-98) % POC ABG Base Excess (-2-3) mmol/L POC FiO2 Sodium 142 (136-145) mmol/L Potassium 3.9 (3.5-5.1) mmol/L Chloride 105 (98-107) mmol/L Carbon Dioxide 29 (21-32) mmol/L BUN 20 H (7-18) mg/dL Creatinine 1.2 (0.70-1.30) mg/dL Est Cr Clr Drug Dosing 59.03 mL/min Estimated GFR (MDRD) > 60 Glucose 175 H (74-106) mg/dL Calcium 8.3 L (8.5-10.1) mg/dL NT-Pro-B Natriuret Pep (<=125) pg/mL 05/11/17 05/11/17 05/11/17 Range/Units 07:41 07:41 10:29 WBC (4.0-10.0) x10^3/uL RBC (4.5-6.0) x10^6/uL Hgb (14.0-18.0) g/dL Hct (40.0-52.0) % MCV (78.0-93.0) fL MCH (26.0-32.0) pg MCHC (32.0-36.0) g/dL RDW Coeff of Laurie (10.0-15.0) % Plt Count (130-400) x10^3/uL Neut % (Auto) (50.0-80.0) % Lymph % (Auto) (25.0-50.0) % [place] % (Auto) (2.0-11.0) % Eos % (Auto) (0.0-4.0) % Baso % (Auto) (0.2-1.2) % PT (9.8-11.8) SEC INR (2.0-3.5) D-Dimer, Quantitative 0.44 (<=0.58) mg/LFEU POC ABG pH 7.416 (7.35-7.45) POC ABG pCO2 40 (35-45) mmHG POC ABG pO2 69 L (80-105) mmHG POC ABG HCO3 26 (22-26) mmol/L POC ABG Total CO2 27 (23-27) mmol/L POC ABG O2 Sat 94 L (95-98) % POC ABG Base Excess 1 (-2-3) mmol/L POC FiO2 0.28 Sodium (136-145) mmol/L Potassium (3.5-5.1) mmol/L Chloride (98-107) mmol/L Carbon Dioxide (21-32) mmol/L BUN (7-18) mg/dL Creatinine (0.70-1.30) mg/dL Est Cr Clr Drug Dosing mL/min Estimated GFR (MDRD) Glucose (74-106) mg/dL Calcium (8.5-10.1) mg/dL NT-Pro-B Natriuret Pep 290 H (<=125) pg/mL Med Orders - Current: Current Medications Albuterol/Ipratropium (Duoneb 3.0-0.5 Mg/3 Ml) 3 ml NEB Q4HRRT [facility] Last Admin: 05/11/17 11:05 Dose: 3 ml Aspirin (Halfprin) 81 mg PO DAILY [facility] Last Admin: 05/11/17 07:45 Dose: 81 mg Cephalexin (Keflex) 500 mg PO BID [facility] Last Admin: 05/11/17 07:45 Dose: 500 mg Docusate Sodium (Colace) 100 mg PO DAILY [facility] Last Admin: 05/11/17 07:45 Dose: 100 mg Famotidine (Pepcid) 10 mg PO BID [facility] Last Admin: 05/11/17 07:45 Dose: 10 mg Levothyroxine Sodium (Synthroid) 100 mcg PO DAILY [facility] Last Admin: 05/11/17 07:45 Dose: 100 mcg Loratadine (Claritin) 10 mg PO DAILY [facility] Last Admin: 05/11/17 07:45 Dose: 10 mg Non-Formulary Medication (Acetaminophen/Diphenhydramine [Pain Relief Pm Caplet] ) 1 each PO BEDTIME [facility] Stop: 05/11/17 01:20 Omeprazole (Omeprazole) 40 mg PO ACBRK [facility] Last Admin: 05/11/17 06:14 Dose: Not Given Sodium Chloride (Saline Flush) 10 ml FLUSH ASDIRECTED PRN PRN Reason: Keep Vein Open Last Admin: 05/10/17 22:43 Dose: 10 ml Warfarin Sodium (Coumadin) 2.5 mg PO [email or web address] [facility] Warfarin Sodium (Coumadin) 5 mg PO [email or web address] [facility] Discontinued Medications Albuterol/Ipratropium (Duoneb 3.0-0.5 Mg/3 Ml) 3 ml NEB ONETIME ONE Stop: 05/10/17 21:40 Last Admin: 05/10/17 21:44 Dose: 3 ml Furosemide (Lasix) 20 mg IV ONETIME ONE Stop: 05/11/17 11:40 Last Admin: 05/11/17 11:51 Dose: 20 mg Methylprednisolone Sodium Succinate (Solu-Medrol) 125 mg IVPUSH ONETIME ONE Stop: 05/10/17 22:25 Last Admin: 05/10/17 22:42 Dose: 125 mg - Exam Quality Assessment: Reports: Supplemental Oxygen, DVT Prophylaxis, Skin Breakdown General: Reports: Alert (communication barrier due to intellectual disability ) HEENT: Reports: Pupils Equal, Pupils Reactive Neck: Reports: Supple Lungs: Reports: Decreased Breath Sounds, Crackles, Wheezing Cardiovascular: Reports: Regular Rate, Regular Rhythm GI/Abdominal Exam: Normal Bowel Sounds, Soft, Non-Tender, No Organomegaly, No Distention, No Abnormal Bruit, No Mass, Pelvis Stable Extremities: Normal Inspection, Normal Range of Motion, Non-Tender, No Pedal Edema, Normal Capillary Refill Skin: Reports: Warm, Dry, Intact Wound/Incisions: Reports: Healing Well Psy/Mental Status: Reports: Alert *Q Meaningful Use (DIS) - VTE *Q VTE Criteria *Q: VTE Mechanical Contraindications *Q: At Risk for Falls - Stroke *Q Stroke Criteria *Q: - AMI *Q AMI Criteria *Q:
[2017-05-11] MEDS ORDERED: DIPHENHYDRAMINE PO SCH (20:00)
[2017-05-11] MEDS ORDERED: ACETAMINOPHEN PO SCH (20:00)
[2017-05-11] MEDS ORDERED: Warfarin 5 MG Tab PO SCH (20:00)
[2017-05-11] MEDS ORDERED: [UNRECOGNIZED DRUG - OTHER] PO SCH (20:00)
[2017-05-13] MEDS ORDERED: Warfarin 2.5 MG Tab PO SCH (20:00)
== END 2017-05-11 12:35 | disposition short-term general hospital (02) ==
LOC: VM.ED 21:20 → VM.MS 22:52
PROVIDERS: ADMIT Nurse Practitioner Family; ATTEND Nurse Practitioner Family
DX: R06.02 Shortness of breath (principal); R06.2 Wheezing; I50.9 Heart failure, unspecified; J30.1 Allergic rhinitis due to pollen; E03.9 Hypothyroidism, unspecified; R09.02 Hypoxemia; Q90.9 Down syndrome, unspecified; Q21.2 Atrioventricular septal defect; F81.9 Developmental disorder of scholastic skills, unspecified; Z79.82 Long term (current) use of aspirin; Z79.899 Other long term (current) drug therapy; Z79.01 Long term (current) use of anticoagulants; Z95.2 Presence of prosthetic heart valve
CPT/HCPCS: 36415; 36600; 51798; 71045; 71046; 80048; 80053; 81001; 82803; 83605; 83880; 85025; 85379; 85610; 86140; 87040; 94640; 94760; 96374; 96375; 99283; 99284-GF; A9270-GY; G0378; J1940; J2930; J7050

== ENCOUNTER 2017-05-28 13:10 | Inpatient (IN) | payer MEDICARE, MEDICAID ==
[2017-05-28] MEDS ORDERED: Ondansetron 4 MG/2 ML SDV IV PRN (13:23)
[2017-05-28] MEDS ORDERED: Albuterol/Ipratropium 3.0-0.5 MG/3 ML Neb Soln NEB PRN (13:23)
[2017-05-28] MEDS ORDERED: Lactated Ringers 1,000 ML IV ONE (13:23)
[2017-05-28] MEDS ORDERED: Acetaminophen 325 MG Tab PO PRN (13:23)
[2017-05-28] MEDS ORDERED: HYDROmorphone 1 MG/ML Syringe IVPUSH PRN (13:23)
--- NOTE | 2017-05-28 13:32 | PCM.HP ---
"H&P History of Present Illness - General Date of Service: 05/28/17 Admit Problem/Dx: Admission Diagnosis/Problem Admission Diagnosis/Problem Hypotension Source of Information: Patient, Family, Old Records, Other - History of Present Illness Initial Comments - Free Text/Narative: HPI Comments:~In for one day recheck of cough. ~Was seen by PA yesterday started on cefuroxime. ~Running low-grade temps around 99. ~Today has become rather ashy roldan and sweaty. ~Blood pressure low 60s to 70/30's. ~They feel he does had adequate oral intake. ~No vomiting. ~He does chronic constipation diarrhea issues but nothing very new. ~He has mild CHF with EF around 45%, valves were normal by recent echocardiogram with functioning mitral valve prosthesis, BNP and troponin were normal is in the hospital. ~He's been started on beta jakub and lisinopril for above CHF. ~Blood pressure runs a bit low at a sliding otherwise he tolerated medicines okay until recently. ~Denies any roxann aspiration at his living center. ~There is been some concern about this the past. ~No recent exposures to influenza or similar. Cough~ Associated symptoms include a fever. Pertinent negatives include no chills. Blood Pressure~ Constipation~ Associated symptoms include a fever. Pertinent negatives include no vomiting. Medications MedicationsPriortoVisit Outpatient Medications Prior to Visit Medication Sig Dispense Refill pyrithione zinc (DANDRUFF SHAMPOO) 1 % SHAM Head and Shoulders, Use 4 times a - [id number]-mek-sat 250 mL 11 cefpodoxime proxetil (VANTIN) 200 mg tablet Take 1 tablet (200 mg) by mouth Every 12 hours for 7 days 14 tablet 0 cephalexin (KEFLEX) 500 mg capsule TAKE 1 CAPSULE BY MOUTH TWICE DAILY. To start after completion of antibiotic treatment for pneumonia. 60 capsule 9 lisinopril (PRINIVIL, ZESTRIL) 10 mg tablet Take 1 tablet (10 mg) by mouth 1 time per day Resume after 1 week 90 tablet 4 polyethylene glycol (MIRALAX) powder Take 1-2 tablespoonsful by mouth 1 time per day 0 esomeprazole (NEXIUM) 40 MG packet (delayed-release oral suspension) Take 40 mg by mouth 1 time per day Dissolve packet with about 1 tablespoon of water. Stir and leave to thicken 2-3 min. carVEDilol (COREG) 3.125 mg tablet Take 1 tablet (3.125 mg) by mouth 2 times a day with meals 180 tablet 4 raNITIdine (ZANTAC-75) 75 mg tablet TAKE 1 TABLET (75 MG) BY MOUTH 2 TIMES A DAY 60 tablet 8 amoxicillin (AMOXIL) 500 mg capsule TAKE 4 CAPSULES BY MOUTH 1 HOUR BEFORE DENTAL APPOINTMENT 16 capsule 0 levothyroxine 100 mcg tablet TAKE 1 TABLET BY MOUTH DAILY 90 tablet 2 multivitamin with minerals (CEROVITE ADVANCED FORMULA) TABS tablet TAKE 1 TABLET BY MOUTH DAILY 90 tablet 2 loratadine (CLARITIN) 10 mg tablet TAKE 1 TABLET BY MOUTH ONCE DAILY 90 tablet 2 cholecalciferol (VITAMIN D3) 2000 units CAPS capsule TAKE 1 CAPSULE BY MOUTH DAILY 90 capsule 2 aspirin 81 mg chewable tablet TAKE 1 TABLET BY MOUTH EVERY NIGHT AT BEDTIME 30 tablet 11 tretinoin (RETIN-A) 0.025 % cream APPLY TO AFFECTED AREA, APPLY EVERY NIGHT TO ACNE ON FACE AND BACK 45 g 3 BENZOYL PEROXIDE WASH 5 % wash USE ON BACK DAILY FOR ACNE 237 g 4 WARFARIN 5 MG tablet TAKE 1 TABLET BY MOUTH ON SAT,,SATURDAY (BLOOD DRAW 07/05/16) 16 tablet 0 WARFARIN 2.5 MG tablet TAKE 1 TABLET BY MOUTH ON SATURDAY, SATURDAY & SATURDAY (BLOOD WORK -) 12 tablet 11 coal tar extract (THERAPEUTIC SHAMPOO) 0.5 % SHAM USE SHAMPOO three times a week M-W-F 420 mL 11 No facility-administered medications prior to visit. Allergies Allergies Allergen Reactions Pollen Extract Unknown/Not Verified Problem List Patient Active Problem List Diagnosis Acute respiratory failure with hypoxia Mild left ventricular systolic dysfunction S/P complete atrioventricular canal repair Chronic anticoagulation Keratoconus Ulcer Small antral ulcer 04/02 and duodentitis, PPI BID and repeat EGD in 07/01 Lipomatosis At least one and probably more very soft lipomas of L arm and perhaps on R Atrioventricular canal (AVC), complete S/P REPAIR PVC's (premature ventricular contractions) Left lower quadrant pain Epigastric hernia Asymptomatic surgery consult 05/30 Anisometropia - Both H/O mitral valve replacement with mechanical valve mitral valve replacement since 2000 in the setting of a repaired AV canal defect, prior surgical ligation of the PDA, closure of an inlet ventricular septal defect, and patch closure of a primum atrial septal defect. Hypothyroid Developmental delay Polycythemia Has been evaluated with normal US of spleen in 2011, had overnight oximetry but wouldn't tolerate oxygen at night, has seen sleep clinic but decision made not to do a sleep study Hearing loss Has hearing aids, goes to ENT for cleaning of his ear canals Dysphagia Occasional coughs and chokes on food if he eats to fast, had speech therapy in the past, has not had frequent bouts of aspiration pneumonia. Acne vulgaris Keflex BID did worse when ABX were decreased Cataract, senile Myopia Astigmatism Impulse control disorder Allergic rhinitis Down's syndrome Medical/Surgical/Family/Social PastMedicalHistory Past Medical History: Diagnosis Date Thyroid disease PastSurgicalHistory Past Surgical History: Procedure Laterality Date CARDIAC SURGERY mechanical mitral valve, see below I AND D left eye lid abscess 2011 SURGERY testicular surgery for undescended testicles UPPER ENDOSCOPY N/A 04/12/2015 Procedure: UPPER ENDOSCOPY;; ~Surgeon: Cristela Lomeli MD UPPER ENDOSCOPY N/A 07/12/2015 Procedure: UPPER ENDOSCOPY;; ~Surgeon: Cristela Lomeli MD FamilyHistory Family History Problem Relation Age of Onset Negative Mother healthy Negative Father healthy SocialHistory Social History Social History Marital status: Single Spouse name: N/A Number of children: N/A Years of education: N/A Occupational History Not on file. Social History Main Topics Smoking status: Never Smoker Smokeless tobacco: Never Used Alcohol use No Drug use: No Sexual activity: No Other Topics Concern Not on file Social History Narrative Lives in a alf with open door, has 24 hr care givers, his parents are involved in his care. ~Has a Wander guard. ROS Review of Systems Constitutional: Positive for diaphoresis, fatigue~and fever. Negative for chills. Respiratory: Positive for cough. ~ Gastrointestinal: Negative for vomiting. Genitourinary: Negative for decreased urine volume. Neurological: Positive for light-headedness. Negative for syncope. Physical / Results BP 70/36 ~Pulse 55 ~Temp 99.6 F (37.6 C) ~Resp 20 ~SpO2 93%|| Physical Exam~ Constitutional: He appears well-developed~and well-nourished. He appears distressed~(weak, awake but slouched back in chair). HENT: Mouth/Throat: Oropharynx is clear and moist. Cardiovascular: Normal rate. ~ [place] ~ Pulmonary/Chest: Effort normal~and breath sounds normal. Abdominal: Soft. Musculoskeletal: He exhibits no edema. Skin: Skin is warm. He is diaphoretic~(mild). There is pallor. Assessment / Plan Problem List Items Addressed This Visit~ None Visit Diagnoses~ Cough~~~~- ~Primary Fever, unspecified fever cause~~~~ Hypotension, unspecified hypotension type~~~~ Bradycardia~~~~ Plan: Hypotension. ~Probably secondary to infectious process given temp and cough. Repeat chest x-ray, test for flu, test blood culture, test basic labs. EKG, repeat troponin and BNP. Admit for IV fluids and antibiotics. Basic labs and chest x-ray were pretty benign yesterday. Monitor bradycardia. ~Hold Coreg and lisinopril for now. - Related Data Allergies/Adverse Reactions: Allergies Allergy/AdvReac Type Severity Reaction Status Date / Time pollen extracts Allergy Cannot Verified 05/10/17 22:38 Remember Home Medications: Home Meds Acetaminophen/Diphenhydramine [Pain Relief Pm Caplet] 1 each PO BEDTIME [History] Amoxicillin 2,000 mg PO ASDIRECTED PRN 05/10/17 [History] Aspirin [Halfprin] 81 mg PO DAILY 05/10/17 [History] Benzoyl Peroxide [Acne Cleansing Bar] 1 each TP DAILY 05/10/17 [History] Cephalexin 500 mg PO BID 05/10/17 [History] Docusate Sodium [Doc-Q-Lace] 100 mg PO DAILY 05/10/17 [History] Esomeprazole [NexIUM] 40 mg PO DAILY 05/10/17 [History] Levothyroxine [Synthroid] 100 mcg PO DAILY 05/10/17 [History] Loratadine 10 mg PO DAILY 05/10/17 [History] Multivitamins/Iron/Folic Acid [Cerovite Advanced Formula] 1 tab PO DAILY [History] Ranitidine [Zantac] 75 mg PO BID 05/10/17 [History] Warfarin Sodium [Jantoven] 2.5 mg PO ASDIRECTED 05/10/17 [History] Warfarin Sodium [Jantoven] 5 mg PO ASDIRECTED 05/10/17 [History] Albuterol/Ipratropium [DuoNeb 3.0-0.5 MG/3 ML] 3 ml NEB Q4HRRT neb 05/11/17 [Rx ] Aspirin [Halfprin] 81 mg PO DAILY tab.ec 05/11/17 [Rx] Docusate Sodium [Colace] 100 mg PO DAILY cap 05/11/17 [Rx] Famotidine [Pepcid] 10 mg PO BID tablet 05/11/17 [Rx] Loratadine [Claritin] 10 mg PO DAILY tablet 05/11/17 [Rx] Omeprazole 40 mg PO ACBRK cap.cr 05/11/17 [Rx] Sodium Chloride 0.9% [Saline Flush] 10 ml FLUSH ASDIRECTED PRN syringe [Rx] Past Medical History HEENT History: Reports: Allergic Rhinitis, Cataract, Hard of Hearing, Other ( See Below) Other HEENT History: myopia, anisometropia-both, astigmatism Cardiovascular History: Reports: Other (See Below) Other Cardiovascular History: mild left ventricular systolic dysfunction, PVCs Gastrointestinal History: Reports: Other (See Below) Other Gastrointestinal History: small antral ulcer and duodentitis, epigastric hernia, dysphagia Psychiatric History: Reports: Developmental Delay, Other (See Below) Other Psychiatric History: impulse control d/o, downs syndrome Endocrine/Metabolic History: Reports: Hypothyroidism Hematologic History: Reports: Polycythemia Dermatologic History: Reports: Other (See Below) Other Dermatologic History: lipomatosis, acne vulgaris - Infectious Disease History Infectious Disease History: Reports: None - Past Surgical History HEENT Surgical History: Reports: Other (See Below) Other HEENT Surgeries/Procedures: I & D left eyelid abscess, Cardiovascular Surgical History: Reports: Valve Replacement, Other (See Below) Other Cardiovascular Surgeries/Procedures: complete atrioventricular canal repair GI Surgical History: Reports: EGD Male Surgical History: Reports: Other (See Below) Other Male Surgeries/Procedures: testicular surgery for undescended testicles Social & Family History - Family History Family Medical History: Noncontributory - Tobacco Use Smoking Status *Q: Never Smoker Second Hand Smoke Exposure: No - Caffeine Use Caffeine Use: Reports: Soda - Recreational Drug Use Recreational Drug Use: No H&P Review of Systems - Review of Systems: Review Of Systems: See Below Exam - Exam Exam: See Below *Q Meaningful Use (ADM) - VTE *Q VTE Criteria *Q: - Stroke *Q Stroke Criteria *Q: - AMI *Q AMI Criteria *Q: Problem List Initiated/Reviewed/Updated: Yes Orders Last 24hrs: Active Orders 24 hr Category Date Time Status Admission Status [Patient Status] [ADT] Routine ADT 05/28/17 13:15 Active Patient Status [ADT] Routine ADT 05/28/17 13:23 Active Cardiac Monitoring [RC] CONTINUOUS Care 05/28/17 13:24 Active EKG Documentation Completion [RC] STAT Care 05/28/17 13:28 Active Oxygen Therapy [RC] PRN Care 05/28/17 13:23 Active RT Aerosol Therapy [RC] ASDIRECTED Care 05/28/17 13:26 Active Up With Assistance [RC] ASDIRECTED Care 05/28/17 13:23 Active VTE/DVT Education [RC] PER UNIT ROUTINE Care 05/28/17 13:23 Active Vital Signs [RC] Q4H Care 05/28/17 13:23 Active Regular Diet [DIET] Diet 05/28/17 Dinner Active Chest 2V [CR] Routine Exams 05/28/17 13:23 Ordered C-REACTIVE PROTEIN [CHEM] Routine Lab 05/28/17 13:23 Ordered CBC WITH AUTO DIFF [HEME] Routine Lab 05/28/17 13:23 Ordered COMPREHENSIVE METABOLIC PN,CMP [CHEM] Routine Lab 05/28/17 13:23 Ordered CULTURE BLOOD [BC] Stat Lab 05/28/17 13:27 Ordered CULTURE BLOOD [BC] Stat Lab 05/28/17 13:27 Ordered CULTURE SPUTUM + SMEAR [RM] Stat Lab 05/28/17 13:23 Ordered INFLUENZA A+B AG SCREEN [RM] Routine Lab 05/28/17 13:28 Ordered MAGNESIUM [CHEM] Routine Lab 05/28/17 13:23 Ordered PRO B-TYPE NATRIUR PEPT,BNPPRO [CHEM] Routine Lab 05/28/17 13:23 Ordered TROPONIN I [CHEM] Routine Lab 05/28/17 13:23 Ordered UA W/MICROSCOPIC [URIN] Routine Lab 05/28/17 13:23 Ordered Acetaminophen [Tylenol] Med 05/28/17 13:23 Ordered 650 mg PO Q4H PRN Albuterol/Ipratropium [DuoNeb 3.0-0.5 MG/3 ML] Med 05/28/17 13:23 Ordered 3 ml NEB Q4H PRN HYDROmorphone [Dilaudid] Med 05/28/17 13:23 Ordered 0.25 mg IVPUSH Q2H PRN Lactated Ringers [Ringers, Lactated] 1,000 ml Med 05/28/17 13:23 Ordered IV .BOLUS Lactated Ringers [Ringers, Lactated] 1,000 ml Med 05/28/17 13:30 Ordered IV ASDIRECTED Ondansetron [Zofran] Med 05/28/17 13:23 Ordered 4 mg IV Q6H PRN Blood Culture x2 Reflex Set [OM.PC] Stat Oth 05/28/17 13:23 Ordered Resuscitation Status Routine Resus Stat 05/28/17 13:23 Ordered Medication Orders Acetaminophen (Tylenol) 650 mg PO Q4H PRN PRN Reason: Pain (Mild 1-3)/fever Albuterol/Ipratropium (Duoneb 3.0-0.5 Mg/3 Ml) 3 ml NEB Q4H PRN PRN Reason: dyspnea/wheezing Hydromorphone HCl (Dilaudid) 0.25 mg IVPUSH Q2H PRN PRN Reason: Pain (severe 7-10) Lactated Ringer's (Ringers, Lactated) 1,000 mls @ 999 mls/hr IV .BOLUS ONE Stop: 05/28/17 14:23 Lactated Ringer's (Ringers, Lactated) 1,000 mls @ 125 mls/hr IV ASDIRECTED IBRAHIMA Ondansetron HCl (Zofran) 4 mg IV Q6H PRN PRN Reason: Nausea/Vomiting"
[2017-05-28] MEDS ORDERED: Piperacillin/Tazobactam 3.375 GM in Sodium Chloride 0.9% 100 ML IV SCH (14:15)
[2017-05-28 14:40] LABS: CHLORIDE,CL 101 mmol/L (98-107); SODIUM,NA 136 mmol/L (136-145)
[2017-05-28] MEDS: Lactated Ringers 1,000 ML IV SCH ×2 (15:09→18:49)
[2017-05-28] MEDS: Piperacillin/Tazobactam 3.375 GM in Sodium Chloride 0.9% 100 ML IV SCH ×2 (15:37→21:24)
[2017-05-28] MEDS ORDERED: Iopamidol 612 MG/ML 100 ML Bottle IVPUSH ONE (15:46)
[2017-05-28] MEDS: Iopamidol 612 MG/ML 100 ML Bottle IVPUSH ONE ×2 (16:23→16:30)
[2017-05-28] MEDS ORDERED: Warfarin 5 MG Tab PO SCH (20:00)
[2017-05-29] MEDS: Piperacillin/Tazobactam 3.375 GM in Sodium Chloride 0.9% 100 ML IV SCH ×4 (03:12→22:11)
[2017-05-29] MEDS: Lactated Ringers 1,000 ML IV SCH (05:01)
[2017-05-29] MEDS: Omeprazole 20 MG Cap.CR PO SCH (06:31)
[2017-05-29 07:07] LABS: CHLORIDE,CL 106 mmol/L (98-107); SODIUM,NA 139 mmol/L (136-145)
[2017-05-29] MEDS: Multivitamins with Iron/Calcium/Folic Acid/Minerals Tab PO SCH (07:37)
[2017-05-29] MEDS: Levothyroxine 100 MCG Tab PO SCH (07:38)
[2017-05-29] MEDS: Loratadine 10 MG Tab PO SCH (07:38)
[2017-05-29] MEDS: Cholecalciferol (Vitamin D3) 1,000 Unit Tab PO SCH (07:38)
[2017-05-29] MEDS: BENZOYL PEROXIDE TP SCH (07:40)
[2017-05-29] MEDS ORDERED: Iopamidol 612 MG/ML 100 ML Bottle IVPUSH ONE (09:33)
[2017-05-29] MEDS ORDERED: Diphtheria,Pertussis(Acell),Tetanus Vaccine 0.5 ML Syringe IM ONE (10:00)
--- NOTE | 2017-05-29 10:21 | PCM.PN ---
- General Info Date of Service: 05/29/17 Admission Dx/Problem (Free Text): Subjective: Patient was admitted yesterday for hypotension, cough, borderline fever, borderline neutrophilia, mild abdominal pain and constipation. Blood pressure came up quickly with bolus LR. Chest x-ray chest CT negative for any infection. CRP was elevated greater than 100 mg/L. Remained afebrile during his stay. Flat film appeared to show ileus. CT abdomen pelvis showed no acute changes. Bladder was quite full but he is voiding a large amount spontaneously now. Tolerating some oral intake without difficulty. Objective: oxygenation saturation 94% room air temperature 37.1 Celsius pulse 84 blood pressure 100/70 Alert no distress sitting in bed comfortable. Skin: Normal. Heart and lungs clear to auscultation. Abdomen soft nontender normal bowel sounds. Extremity is warm well perfused without edema. Assessment and plan: Hypotension, ileus. Improving with IV fluids. We will transition to orals today. No acute process seen by CT. He remains afebrile. Could be viral illness or similar. Continue Zosyn for another 24 hours until blood cultures come back negative. Possible discharge in morning if still looking good. Recheck labs in the morning. We'll try to get him up walking and eating today is to see if he can pass a bowel movement. Could use some laxatives when necessary. CHF appears stable. - Patient Data Vitals - Most Recent: Last Vital Signs Temp 36.6 C 05/29/17 06:00 Pulse 69 05/29/17 06:00 Resp 18 05/29/17 06:00 BP 94/56 L 05/29/17 06:00 Pulse Ox 94 L 05/29/17 06:00 Weight - Most Recent: 52.617 kg I&O - Last 24 Hours: Intake & Output 05/28/17 05/29/17 05/29/17 22:59 06:59 14:59 Intake Total 1340 2572 420 Output Total 9374 730 8797 Balance 340 1922 -580 Lab Results Last 24 Hours: Laboratory Results - last 24 hr 05/28/17 05/28/17 05/28/17 Range/Units 14:00 14:00 14:00 WBC 9.6 (4.0-10.0) x10^3/uL RBC 4.85 (4.5-6.0) x10^6/uL Hgb 16.0 (14.0-18.0) g/dL Hct 46.4 (40.0-52.0) % MCV 95.7 H (78.0-93.0) fL MCH 33.0 H (26.0-32.0) pg MCHC 34.5 (32.0-36.0) g/dL RDW Coeff of Laurie 15.1 H (10.0-15.0) % Plt Count 162 (130-400) x10^3/uL Neut % (Auto) 84.7 H (50.0-80.0) % Lymph % (Auto) 7.1 L (25.0-50.0) % [place] % (Auto) 7.4 (2.0-11.0) % Eos % (Auto) 0.5 (0.0-4.0) % Baso % (Auto) 0.3 (0.2-1.2) % PT (9.8-11.8) SEC INR (2.0-3.5) Sodium 136 (136-145) mmol/L Potassium 4.5 (3.5-5.1) mmol/L Chloride 101 (98-107) mmol/L Carbon Dioxide 30 (21-32) mmol/L BUN 16 (7-18) mg/dL Creatinine 1.3 (0.70-1.30) mg/dL Est Cr Clr Drug Dosing 54.49 mL/min Estimated GFR (MDRD) > 60 Glucose 134 H (74-106) mg/dL Lactic Acid (0.4-2.0) mmol/L Calcium 8.8 (8.5-10.1) mg/dL Corrected Calcium 9.68 (8.5-10.1) mg/dL Magnesium 2.1 (1.8-2.4) mg/dL Total Bilirubin 1.1 H (0.2-1.0) mg/dL AST 20 (15-37) U/L ALT 38 (16-63) U/L Alkaline Phosphatase 73 (46-116) U/L Troponin I 0.018 (<=0.056) ng/mL C-Reactive Protein 13.3 H (<=0.9) mg/dL NT-Pro-B Natriuret Pep 263 H (<=125) pg/mL Total Protein 6.7 (6.4-8.2) g/dL Albumin 2.9 L (3.4-5.0) g/dL Globulin 3.8 Albumin/Globulin Ratio 0.76 Free T4 (0.58-1.64) ng/dL TSH, Ultra Sensitive 12.348 H (0.358-3.74) uIU/mL Urine Color (YELLOW) Urine Appearance (CLEAR) Urine pH (5.0-8.0) Ur Specific [place] Urine Protein (NEGATIVE) mg/dL Urine Glucose (UA) (NEGATIVE) mg/dL Urine Ketones (NEGATIVE) mg/dL Urine Occult Blood (NEGATIVE) Urine Nitrite (NEGATIVE) Urine Bilirubin (NEGATIVE) Urine Urobilinogen (0.2) EU/dL Ur Leukocyte Esterase (NEGATIVE) Urine RBC (NOT SEEN) /HPF Urine WBC (NOT SEEN) /HPF Ur Squamous Epith Cells (NEGATIVE) /HPF Urine Bacteria (NEGATIVE) /HPF Urine Mucus (NEGATIVE) /LPF 05/28/17 05/28/17 05/28/17 Range/Units 14:00 14:00 15:18 WBC (4.0-10.0) x10^3/uL RBC (4.5-6.0) x10^6/uL Hgb (14.0-18.0) g/dL Hct (40.0-52.0) % MCV (78.0-93.0) fL MCH (26.0-32.0) pg MCHC (32.0-36.0) g/dL RDW Coeff of Laurie (10.0-15.0) % Plt Count (130-400) x10^3/uL Neut % (Auto) (50.0-80.0) % Lymph % (Auto) (25.0-50.0) % [place] % (Auto) (2.0-11.0) % Eos % (Auto) (0.0-4.0) % Baso % (Auto) (0.2-1.2) % PT 35.7 H (9.8-11.8) SEC INR 3.4 (2.0-3.5) Sodium (136-145) mmol/L Potassium (3.5-5.1) mmol/L Chloride (98-107) mmol/L Carbon Dioxide (21-32) mmol/L BUN (7-18) mg/dL Creatinine (0.70-1.30) mg/dL Est Cr Clr Drug Dosing mL/min Estimated GFR (MDRD) Glucose (74-106) mg/dL Lactic Acid 1.1 (0.4-2.0) mmol/L Calcium (8.5-10.1) mg/dL Corrected Calcium (8.5-10.1) mg/dL Magnesium (1.8-2.4) mg/dL Total Bilirubin (0.2-1.0) mg/dL AST (15-37) U/L ALT (16-63) U/L Alkaline Phosphatase (46-116) U/L Troponin I (<=0.056) ng/mL C-Reactive Protein (<=0.9) mg/dL NT-Pro-B Natriuret Pep (<=125) pg/mL Total Protein (6.4-8.2) g/dL Albumin (3.4-5.0) g/dL Globulin Albumin/Globulin Ratio Free T4 1.21 (0.58-1.64) ng/dL TSH, Ultra Sensitive (0.358-3.74) uIU/mL Urine Color (YELLOW) Urine Appearance (CLEAR) Urine pH (5.0-8.0) Ur Specific [place] Urine Protein (NEGATIVE) mg/dL Urine Glucose (UA) (NEGATIVE) mg/dL Urine Ketones (NEGATIVE) mg/dL Urine Occult Blood (NEGATIVE) Urine Nitrite (NEGATIVE) Urine Bilirubin (NEGATIVE) Urine Urobilinogen (0.2) EU/dL Ur Leukocyte Esterase (NEGATIVE) Urine RBC (NOT SEEN) /HPF Urine WBC (NOT SEEN) /HPF Ur Squamous Epith Cells (NEGATIVE) /HPF Urine Bacteria (NEGATIVE) /HPF Urine Mucus (NEGATIVE) /LPF 05/28/17 05/29/17 05/29/17 Range/Units 16:50 06:45 06:45 WBC 5.7 (4.0-10.0) x10^3/uL RBC 4.35 L (4.5-6.0) x10^6/uL Hgb 14.6 (14.0-18.0) g/dL Hct 42.1 (40.0-52.0) % MCV 96.8 H (78.0-93.0) fL MCH 33.6 H (26.0-32.0) pg MCHC 34.7 (32.0-36.0) g/dL RDW Coeff of Laurie 14.9 (10.0-15.0) % Plt Count 150 (130-400) x10^3/uL Neut % (Auto) 73.6 (50.0-80.0) % Lymph % (Auto) 14.9 L (25.0-50.0) % [place] % (Auto) 10.1 (2.0-11.0) % Eos % (Auto) 0.9 (0.0-4.0) % Baso % (Auto) 0.5 (0.2-1.2) % PT (9.8-11.8) SEC INR (2.0-3.5) Sodium 139 (136-145) mmol/L Potassium 4.2 (3.5-5.1) mmol/L Chloride 106 (98-107) mmol/L Carbon Dioxide 29 (21-32) mmol/L BUN 12 (7-18) mg/dL Creatinine 1.1 (0.70-1.30) mg/dL Est Cr Clr Drug Dosing 64.39 mL/min Estimated GFR (MDRD) > 60 Glucose 107 H (74-106) mg/dL Lactic Acid (0.4-2.0) mmol/L Calcium 8.0 L (8.5-10.1) mg/dL Corrected Calcium (8.5-10.1) mg/dL Magnesium (1.8-2.4) mg/dL Total Bilirubin (0.2-1.0) mg/dL AST (15-37) U/L ALT (16-63) U/L Alkaline Phosphatase (46-116) U/L Troponin I (<=0.056) ng/mL C-Reactive Protein (<=0.9) mg/dL NT-Pro-B Natriuret Pep (<=125) pg/mL Total Protein (6.4-8.2) g/dL Albumin (3.4-5.0) g/dL Globulin Albumin/Globulin Ratio Free T4 (0.58-1.64) ng/dL TSH, Ultra Sensitive (0.358-3.74) uIU/mL Urine Color Yellow (YELLOW) Urine Appearance Clear (CLEAR) Urine pH 7.0 (5.0-8.0) Ur Specific [place] 1.010 Urine Protein Negative (NEGATIVE) mg/dL Urine Glucose (UA) Negative (NEGATIVE) mg/dL Urine Ketones Negative (NEGATIVE) mg/dL Urine Occult Blood Negative (NEGATIVE) Urine Nitrite Negative (NEGATIVE) Urine Bilirubin Negative (NEGATIVE) Urine Urobilinogen 0.2 (0.2) EU/dL Ur Leukocyte Esterase Negative (NEGATIVE) Urine RBC Not seen (NOT SEEN) /HPF Urine WBC Not seen (NOT SEEN) /HPF Ur Squamous Epith Cells Not seen (NEGATIVE) /HPF Urine Bacteria Rare (NEGATIVE) /HPF Urine Mucus Rare H (NEGATIVE) /LPF [place] Results Last 24 Hours: Microbiology 05/28/17 14:04 MRSA Surveillance Culture - Final Nares, Unspecified NO MRSA ISOLATED 05/28/17 14:05 Influenza Type A Antigen Screen - Final Nasopharyngeal Swab NEGATIVE INFLUENZA A VIRUS AG Influenza Type B Antigen Screen - Final NEGATIVE INFLUENZA B VIRUS AG 05/28/17 14:07 Anaerobic Blood Culture - Final Blood - Venous - Lab Draw 05/28/17 14:00 Anaerobic Blood Culture - Final Blood - Venous Med Orders - Current: Current Medications Acetaminophen (Tylenol) 650 mg PO Q4H PRN PRN Reason: Pain (Mild 1-3)/fever Albuterol/Ipratropium (Duoneb 3.0-0.5 Mg/3 Ml) 3 ml NEB Q4H PRN PRN Reason: dyspnea/wheezing Cholecalciferol (Vitamin D3) 2,000 units PO DAILY [facility] Last Admin: 05/29/17 07:38 Dose: 2,000 units Hydromorphone HCl (Dilaudid) 0.25 mg IVPUSH Q2H PRN PRN Reason: Pain (severe 7-10) Piperacillin Sod/Tazobactam (Sod 3.375 gm/ Sodium Chloride) 100 mls @ 25 mls/ hr IV Q8H [facility] Levothyroxine Sodium (Synthroid) 100 mcg PO DAILY [facility] Last Admin: 05/29/17 07:38 Dose: 100 mcg Loratadine (Claritin) 10 mg PO DAILY [facility] Last Admin: 05/29/17 07:38 Dose: 10 mg Multivitamins/Minerals (Thera M Plus) 1 tab PO DAILY [facility] Last Admin: 05/29/17 07:37 Dose: 1 tab Benzoyl Peroxide [ (Acne Cleansing Bar]) 1 each TP DAILY [facility] Last Admin: 05/29/17 07:40 Dose: Not Given Omeprazole (Omeprazole) 40 mg PO DAILY@0700 [facility] Last Admin: 05/29/17 06:31 Dose: 40 mg Ondansetron HCl (Zofran) 4 mg IV Q6H PRN PRN Reason: Nausea/Vomiting Warfarin Sodium (Coumadin) 2.5 mg PO MoWeFr@1999 [facility] Warfarin Sodium (Coumadin) 5 mg PO SuTuThSa@1999 [facility] Last Admin: 05/28/17 21:23 Dose: 5 mg Discontinued Medications Lactated Ringer's (Ringers, Lactated) 1,000 mls @ 999 mls/hr IV .BOLUS ONE Stop: 05/28/17 14:23 Last Admin: 05/28/17 13:57 Dose: 999 mls/hr Lactated Ringer's (Ringers, Lactated) 1,000 mls @ 125 mls/hr IV ASDIRECTED [facility] Last Admin: 05/29/17 05:01 Dose: 125 mls/hr Piperacillin Sod/Tazobactam (Sod 3.375 gm/ Sodium Chloride) 100 mls @ 25 mls/ hr IV Q8H [facility] Last Admin: 05/28/17 15:34 Dose: Not Given Piperacillin Sod/Tazobactam (Sod 3.375 gm/ Sodium Chloride) 100 mls @ 200 mls/ hr IV Q6H [facility] Last Admin: 05/29/17 08:33 Dose: 200 mls/hr Iopamidol (Isovue-300 (61%)) 100 ml IVPUSH ONETIME ONE Stop: 05/28/17 15:47 Last Admin: 05/28/17 18:51 Dose: Not Given Iopamidol (Isovue-300 (61%)) 100 ml IVPUSH ONETIME ONE Stop: 05/29/17 09:34 - Problem List Review Problem List Initiated/Reviewed/Updated: Yes - My Orders Last 24 Hours: My Active Orders 05/28/17 13:15 Admission Status [Patient Status] [ADT] Routine 05/28/17 13:23 Patient Status [ADT] Routine Oxygen Therapy [RC] .PRN Up With Assistance [RC] 08,20 VTE/DVT Education [RC] PER UNIT ROUTINE Vital Signs [RC] 06,10,14,18,22,02 Chest 1V Frontal [CR] Routine CULTURE SPUTUM + SMEAR [RM] Stat Acetaminophen [Tylenol] 650 mg PO Q4H PRN Albuterol/Ipratropium [DuoNeb 3.0-0.5 MG/3 ML] 3 ml NEB Q4H PRN HYDROmorphone [Dilaudid] 0.25 mg IVPUSH Q2H PRN Ondansetron [Zofran] 4 mg IV Q6H PRN Blood Culture x2 Reflex Set [OM.PC] Stat Resuscitation Status Routine 05/28/17 13:24 Cardiac Monitoring [RC] 06,10,14,18,22,02 05/28/17 13:26 RT Aerosol Therapy [RC] .PRN 05/28/17 14:00 CULTURE BLOOD [BC] Stat 05/28/17 14:07 CULTURE BLOOD [BC] Stat 05/28/17 14:16 Abdomen 1V Flat [CR] Routine 05/28/17 15:08 Vaccines to be Administered [RC] .PRN 05/28/17 15:18 THYROXINE (T4) [REF] Routine 05/28/17 15:33 Chest Abdomen Pelvis w Cont [CT] Routine 05/28/17 20:00 Warfarin [Coumadin] 5 mg PO SuTuThSa@199905/29/17 07:00 Omeprazole 40 mg PO DAILY@0700 05/29/17 08:00 Benzoyl Peroxide [Acne Cleansing Bar] 1 each TP DAILY Cholecalciferol (Vitamin D3) [Vitamin D3] 2,000 units PO DAILY Levothyroxine [Synthroid] 100 mcg PO DAILY Loratadine [Claritin] 10 mg PO DAILY Multivitamins w-Iron/Ca/FA/Min [Thera M Plus] 1 tab PO DAILY 05/29/17 14:00 Piperacillin/Tazobactam [Zosyn] 3.375 gm Sodium Chloride 0.9% [Normal Saline] 100 ml IV Q8H 05/29/17 20:00 Warfarin [Coumadin] 2.5 mg PO MoWeFr@199905/29/17 Lunch Regular Diet [DIET]
[2017-05-29] MEDS ORDERED: Warfarin 2.5 MG Tab PO SCH (20:00)
[2017-05-30] MEDS: Piperacillin/Tazobactam 3.375 GM in Sodium Chloride 0.9% 100 ML IV SCH (06:09)
[2017-05-30] MEDS: Omeprazole 20 MG Cap.CR PO SCH (06:09)
[2017-05-30 06:53] LABS: CHLORIDE,CL 104 mmol/L (98-107); SODIUM,NA 141 mmol/L (136-145)
[2017-05-30] MEDS: Multivitamins with Iron/Calcium/Folic Acid/Minerals Tab PO SCH (08:27)
[2017-05-30] MEDS: Loratadine 10 MG Tab PO SCH (08:27)
[2017-05-30] MEDS: Cholecalciferol (Vitamin D3) 1,000 Unit Tab PO SCH (08:28)
[2017-05-30] MEDS: Levothyroxine 100 MCG Tab PO SCH (08:29)
[2017-05-30] MEDS: BENZOYL PEROXIDE TP SCH (08:35)
--- NOTE | 2017-05-30 11:21 | PCM.DCSUM1 ---
Discharge Summary - Hospital Course Free Text/Narrative:: Patient was admitted from the clinic two days ago for hypo-tension. He had a mild cough at that time chest x-ray was negative. He had borderline neutrophilia, CRP was elevated, borderline temp under [address] chest did not show any hidden infiltrates. No residual nodules compared to prior from a month ago. He had an ileus pattern by x-ray. CT abdomen and pelvis did not show any acute causes for this. Viral illness, pseudoobstruction, dysmotility in differential. Had upper endoscopy in the past with mild PUD. Past xrays have not shown the same ileus pattern. Flu testing was negative. Blood cultures negative. Improved pretty briskly with IV fluids tolerating full oral intake with normal stool on day of discharge. Still has some mild ileus changes by x-ray but otherwise asymptomatic. Home on Jessica ax Metamucil bland diet. Regarding his low blood pressure and chronic mild CHF restart Coreg low-dose 3.125 twice a day. Decrease lisinopril from 10 to 2.5. Follow-up clinic two weeks, sooner if worse. - Discharge Data Discharge Date: 05/30/17 Discharge Disposition: Home, Self-Care 01 Condition: Good - Discharge Diagnosis/Problem(s) (1) Adynamic ileus SNOMED Code(s): 99024804 ICD Code: K56.0 - PARALYTIC ILEUS Status: Acute Current Visit: Yes - Discharge Plan Prescriptions/Med Rec: Lisinopril 2.5 mg PO DAILY #90 tablet Home Medications: Home Meds Amoxicillin 2,000 mg PO ASDIRECTED PRN 05/10/17 [History] Benzoyl Peroxide [Acne Cleansing Bar] 1 each TP DAILY 05/10/17 [History] Cephalexin 500 mg PO BID 05/10/17 [History] Levothyroxine [Synthroid] 100 mcg PO DAILY 05/10/17 [History] Multivitamins/Iron/Folic Acid [Cerovite Advanced Formula] 1 tab PO DAILY [History] Warfarin Sodium [Jantoven] 2.5 mg PO MOWEFR 05/10/17 [History] Warfarin Sodium [Jantoven] 5 mg PO SUTUTHSA 05/10/17 [History] Loratadine [Claritin] 10 mg PO DAILY tablet 05/11/17 [Rx] Aspirin 81 mg PO BEDTIME 05/28/17 [History] Carvedilol 3.125 mg PO BID 05/28/17 [History] Cholecalciferol (Vitamin D3) [Vitamin D3] 2,000 unit PO DAILY 05/28/17 [History] Esomeprazole [NexIUM] 40 mg PO DAILY 05/28/17 [History] Polyethylene Glycol 3350 17 gm PO DAILY 05/28/17 [History] Acetaminophen [Tylenol] 650 mg PO Q4H PRN tablet 05/30/17 [Rx] Benzoyl Peroxide [Acne Cleansing Bar] 1 each TP DAILY 05/30/17 [Rx] Lisinopril 2.5 mg PO DAILY #90 tablet 05/30/17 [Rx] Patient Handouts: Hypotension, [id number], Ileus - Patient Data Vitals - Most Recent: Last Vital Signs Temp 37.2 C 05/30/17 10:00 Pulse 76 05/30/17 10:00 Resp 16 05/30/17 10:00 BP 122/56 L 05/30/17 10:00 Pulse Ox 98 05/30/17 10:00 Weight - Most Recent: 52.617 kg I&O - Last 24 hours: Intake & Output 05/29/17 05/30/17 05/30/17 22:59 06:59 14:59 Intake Total 1107 350 360 Output Total 1000 Balance 1107 -650 360 Lab Results - Last 24 hrs: Laboratory Results - last 24 hr 05/30/17 05/30/17 05/30/17 Range/Units 06:18 06:18 06:18 WBC 4.0 (4.0-10.0) x10^3/uL RBC 4.46 L (4.5-6.0) x10^6/uL Hgb 15.0 (14.0-18.0) g/dL Hct 43.1 (40.0-52.0) % MCV 96.6 H (78.0-93.0) fL MCH 33.6 H (26.0-32.0) pg MCHC 34.8 (32.0-36.0) g/dL RDW Coeff of Laurie 14.6 (10.0-15.0) % Plt Count 163 (130-400) x10^3/uL Neut % (Auto) 66.5 (50.0-80.0) % Lymph % (Auto) 21.3 L (25.0-50.0) % [place] % (Auto) 9.4 (2.0-11.0) % Eos % (Auto) 2.0 (0.0-4.0) % Baso % (Auto) 0.8 (0.2-1.2) % PT 30.4 H (9.8-11.8) SEC INR 2.9 (2.0-3.5) Sodium 141 (136-145) mmol/L Potassium 3.8 (3.5-5.1) mmol/L Chloride 104 (98-107) mmol/L Carbon Dioxide 30 (21-32) mmol/L BUN 13 (7-18) mg/dL Creatinine 1.1 (0.70-1.30) mg/dL Est Cr Clr Drug Dosing 64.39 mL/min Estimated GFR (MDRD) > 60 Glucose 100 (74-106) mg/dL Calcium 8.3 L (8.5-10.1) mg/dL C-Reactive Protein 8.1 H (<=0.9) mg/dL [facility]OHANA Results - Last 24 hrs: Microbiology 05/28/17 14:07 Aerobic Blood Culture - Preliminary Blood - Venous - Lab Draw NO GROWTH AFTER 1 DAY Anaerobic Blood Culture - Final 05/28/17 14:00 Aerobic Blood Culture - Preliminary Blood - Venous NO GROWTH AFTER 1 DAY Anaerobic Blood Culture - Final 05/28/17 14:04 MRSA Surveillance Culture - Final Nares, Unspecified NO MRSA ISOLATED Med Orders - Current: Current Medications Acetaminophen (Tylenol) 650 mg PO Q4H PRN PRN Reason: Pain (Mild 1-3)/fever Albuterol/Ipratropium (Duoneb 3.0-0.5 Mg/3 Ml) 3 ml NEB Q4H PRN PRN Reason: dyspnea/wheezing Cholecalciferol (Vitamin D3) 2,000 units PO DAILY [facility] Last Admin: 05/30/17 08:28 Dose: 2,000 units Hydromorphone HCl (Dilaudid) 0.25 mg IVPUSH Q2H PRN PRN Reason: Pain (severe 7-10) Piperacillin Sod/Tazobactam (Sod 3.375 gm/ Sodium Chloride) 100 mls @ 25 mls/ hr IV Q8H [facility] Last Admin: 05/30/17 06:09 Dose: 25 mls/hr Levothyroxine Sodium (Synthroid) 100 mcg PO DAILY [facility] Last Admin: 05/30/17 08:29 Dose: 100 mcg Loratadine (Claritin) 10 mg PO DAILY [facility] Last Admin: 05/30/17 08:27 Dose: 10 mg Multivitamins/Minerals (Thera M Plus) 1 tab PO DAILY [facility] Last Admin: 05/30/17 08:27 Dose: 1 tab Benzoyl Peroxide [ (Acne Cleansing Bar]) 1 each TP DAILY [facility] Last Admin: 05/30/17 08:35 Dose: Not Given Omeprazole (Omeprazole) 40 mg PO DAILY@0700 [facility] Last Admin: 05/30/17 06:09 Dose: 40 mg Ondansetron HCl (Zofran) 4 mg IV Q6H PRN PRN Reason: Nausea/Vomiting Warfarin Sodium (Coumadin) 2.5 mg PO MoWeFr@1999 [facility] Last Admin: 05/29/17 20:09 Dose: 2.5 mg Warfarin Sodium (Coumadin) 5 mg PO SuTuThSa@1999 [facility] Last Admin: 05/28/17 21:23 Dose: 5 mg Discontinued Medications Lactated Ringer's (Ringers, Lactated) 1,000 mls @ 999 mls/hr IV .BOLUS ONE Stop: 05/28/17 14:23 Last Admin: 05/28/17 13:57 Dose: 999 mls/hr Lactated Ringer's (Ringers, Lactated) 1,000 mls @ 125 mls/hr IV ASDIRECTED [facility] Last Admin: 05/29/17 05:01 Dose: 125 mls/hr Piperacillin Sod/Tazobactam (Sod 3.375 gm/ Sodium Chloride) 100 mls @ 25 mls/ hr IV Q8H [facility] Last Admin: 05/28/17 15:34 Dose: Not Given Piperacillin Sod/Tazobactam (Sod 3.375 gm/ Sodium Chloride) 100 mls @ 200 mls/ hr IV Q6H [facility] Last Admin: 05/29/17 08:33 Dose: 200 mls/hr Iopamidol (Isovue-300 (61%)) 100 ml IVPUSH ONETIME ONE Stop: 05/28/17 15:47 Last Admin: 05/28/17 18:51 Dose: Not Given Iopamidol (Isovue-300 (61%)) 100 ml IVPUSH ONETIME ONE Stop: 05/28/17 15:47 Last Admin: 05/28/17 16:30 Dose: 100 ml *Q Meaningful Use (DIS) - VTE *Q VTE Criteria *Q: - Stroke *Q Stroke Criteria *Q: - AMI *Q AMI Criteria *Q:
== END 2017-05-30 13:15 | disposition home or self-care (01) | DRG 389 ==
LOC: VM.MS 13:15
PROVIDERS: ADMIT Family Medicine; ATTEND Family Medicine
DX: K56.0 Paralytic ileus (principal); I50.22 Chronic systolic (congestive) heart failure; I95.9 Hypotension, unspecified; Q90.9 Down syndrome, unspecified; F79 Unspecified intellectual disabilities; D75.1 Secondary polycythemia; E03.9 Hypothyroidism, unspecified; R13.10 Dysphagia, unspecified; H91.90 Unspecified hearing loss, unspecified ear; F63.9 Impulse disorder, unspecified; Z95.2 Presence of prosthetic heart valve; Z79.01 Long term (current) use of anticoagulants; Z79.899 Other long term (current) drug therapy; Z79.82 Long term (current) use of aspirin
CPT/HCPCS: 36415; 51798; 71045; 71260; 74018; 74177; 80048; 80053; 81001; 83605; 83735; 83880; 84436; 84439; 84443; 84484; 85025; 85610; 86140; 87040; 87804; 93005; A9270-GY; J2543; J7050; J7120; Q9967

== ENCOUNTER 2018-05-18 18:49 | Emergency (ER) | payer MEDICARE, MEDICAID ==
--- NOTE | 2018-05-18 19:01 | EDM.PDOC ---
ED HPI GENERAL MEDICAL PROBLEM - General Chief Complaint: Gastrointestinal Problem Stated Complaint: ABDOMINAL PAIN Time Seen by Provider: 05/18/18 18:54 Source of Information: Reports: Family, Other (staff from [facility]) History Limitations: Reports: Physical Impairment - History of Present Illness INITIAL COMMENTS - FREE TEXT/NARRATIVE: Patient with Down's Syndrome comes in with complaints of left sided abdominal and chest pain. He is unable to verbalize other than yes or no. Staff is with him and reports pain as above. he also reports low grade temp of 99.3 earlier today. No medications given. He is unable to vocalize additional ROS. History includes mechanical valve replacement. Onset: Gradual Duration: Intermittent Location: Reports: Chest, Abdomen Severity: Mild Improves with: Reports: None - Related Data Allergies Allergy/AdvReac Type Severity Reaction Status Date / Time pollen extracts Allergy Cannot Verified 05/18/18 19:02 Remember Home Meds: Home Meds Amoxicillin 2,000 mg PO ASDIRECTED PRN 05/10/17 [History] Benzoyl Peroxide [Acne Cleansing Bar] 1 each TP DAILY 05/10/17 [History] Levothyroxine [Synthroid] 100 mcg PO DAILY 05/10/17 [History] Multivitamins/Iron/Folic Acid [Cerovite Advanced Formula] 1 tab PO DAILY [History] Warfarin Sodium [Jantoven] 2.5 mg PO MOWEFR 05/10/17 [History] Warfarin Sodium [Jantoven] 5 mg PO SUTUTHSA 05/10/17 [History] Loratadine [Claritin] 10 mg PO DAILY tablet 05/11/17 [Rx] Aspirin 81 mg PO BEDTIME 05/28/17 [History] Cholecalciferol (Vitamin D3) [Vitamin D3] 2,000 unit PO DAILY 05/28/17 [History] Esomeprazole [NexIUM] 40 mg PO DAILY 05/28/17 [History] Polyethylene Glycol 3350 17 gm PO DAILY 05/28/17 [History] Acetaminophen/Diphenhydramine [Tylenol Pm Ex-Strength Caplet] 1 each PO BEDTIME 05/18/18 [History] Carvedilol 12.5 mg PO BID 05/18/18 [History] [place] Tar [Therapeutic Shampoo] 130 ml TP ASDIRECTED 05/18/18 [History] Fluticasone Propionate [Flonase] 2 spray NS DAILY 05/18/18 [History] Furosemide [Lasix] 20 mg PO DAILY 05/18/18 [History] Melatonin 5 mg PO BEDTIME 05/18/18 [History] Selenium Sulfide [Dandrex 1% Shampoo] 207 ml .XX ASDIRECTED 05/18/18 [History] Tretinoin [Retin-A] 20 gm TP BEDTIME 05/18/18 [History] cephALEXin [Cephalexin] 1 tab PO BID 05/18/18 [History] Past Medical History HEENT History: Reports: Allergic Rhinitis, Cataract, Hard of Hearing, Other ( See Below) Other HEENT History: myopia, anisometropia-both, astigmatism Cardiovascular History: Reports: Other (See Below) Other Cardiovascular History: mild left ventricular systolic dysfunction, PVCs Respiratory History: Reports: Other (See Below) Other Respiratory History: hx of ARF w/ hypoxia Gastrointestinal History: Reports: Other (See Below) Other Gastrointestinal History: small antral ulcer and duodentitis, epigastric hernia, dysphagia Psychiatric History: Reports: Developmental Delay, Other (See Below) Other Psychiatric History: impulse control d/o, downs syndrome Endocrine/Metabolic History: Reports: Hypothyroidism Hematologic History: Reports: Polycythemia Dermatologic History: Reports: Other (See Below) Other Dermatologic History: lipomatosis, acne vulgaris - Infectious Disease History Infectious Disease History: Reports: None - Past Surgical History HEENT Surgical History: Reports: Other (See Below) Other HEENT Surgeries/Procedures: I & D left eyelid abscess, Cardiovascular Surgical History: Reports: Valve Replacement, Other (See Below) Other Cardiovascular Surgeries/Procedures: complete atrioventricular canal repair GI Surgical History: Reports: EGD Male Surgical History: Reports: Other (See Below) Other Male Surgeries/Procedures: testicular surgery for undescended testicles Social & Family History - Family History Family Medical History: Noncontributory - Caffeine Use Caffeine Use: Reports: Soda ED ROS GENERAL - Review of Systems Review Of Systems: Unable To Obtain Constitutional: Reports: Fever Cardiovascular: Reports: Chest Pain GI/Abdominal: Reports: Abdominal Pain ED EXAM, GI/ABD - Physical Exam Exam: See Below Exam Limited By: No Limitations General Appearance: Alert, WD/WN, No Apparent Distress Eyes: Bilateral: Normal Appearance, EOMI Ears: Normal TMs Nose: Normal Inspection, Normal Mucosa, No Blood Throat/Mouth: Normal Inspection, Normal Lips, Normal Teeth, Normal Gums, Normal Oropharynx, Normal Voice, No Airway Compromise Head: Atraumatic, Normocephalic Neck: Normal Inspection, Supple, Non-Tender, Full Range of Motion Respiratory/Chest: No Respiratory Distress, No Accessory Muscle Use, Chest Non- Tender, Rhonchi Cardiovascular: Other (mechanical valve click) GI/Abdominal Exam: Normal Bowel Sounds, Soft, No Organomegaly, No Distention, Tender Back Exam: Normal Inspection, Full Range of Motion, NT Extremities: Normal Inspection, Normal Range of Motion, Non-Tender, Normal Capillary Refill, No Pedal Edema Neurological: Alert, Oriented, CN II-XII Intact, Normal Cognition, Normal Gait, Normal Reflexes, No Motor/Sensory Deficits Psychiatric: Normal Affect, Normal Mood Skin Exam: Warm, Dry, Intact, Normal Color, No Rash Lymphatic: No Adenopathy Course - Radiology Interpretation Free Text/Narrative:: chest x-ray shows left lower lobe pulmonary infiltrate abdomen/pelvis ct negative for acute process Departure - Departure Time of Disposition: 21:00 Disposition: Home, Self-Care 01 Condition: Good Clinical Impression: Left lower lobe pneumonia - Discharge Information *PRESCRIPTION DRUG MONITORING PROGRAM REVIEWED*: Not Applicable *COPY OF PRESCRIPTION DRUG MONITORING REPORT IN PATIENT DE: Not Applicable Instructions: Community-Acquired Pneumonia, Adult, Tdat-ab-Rmmb, Doxycycline tablets or capsules, Probiotics Forms: ED Department Discharge Additional Instructions: Plan 1. Stay well hydrated 2. Doxycycline 100 mg tablet twice daily for 10 days 3. Follow up with primary care provider for repeat testing to be sure infection has passed 4. If symptoms worsen, also visit PCP during daytime hours, ER for after hours 5. Start taking a probiotic tablet/capsule or eat 1-2 servings of yogurt daily to avoid bacterial infection of the intestines from antibiotic use 6. Please call if you have any further questions or concerns - Problem List & Annotations (1) Left lower lobe pneumonia SNOMED Code(s): 422471902 Code(s): J18.1 - LOBAR PNEUMONIA, UNSPECIFIED ORGANISM Status: Acute Priority: Medium Current Visit: Yes Qualifiers: Pneumonia type: due to unspecified organism Qualified Code(s): J18.1 - Lobar pneumonia, unspecified organism - Problem List Review Problem List Initiated/Reviewed/Updated: Yes - Assessment/Plan Assessment:: left lower lobe pneumonia Plan: Plan 1. Stay well hydrated 2. Doxycycline 100 mg tablet twice daily for 10 days 3. Follow up with primary care provider for repeat testing to be sure infection has passed 4. If symptoms worsen, also visit PCP during daytime hours, ER for after hours 5. Start taking a probiotic tablet/capsule or eat 1-2 servings of yogurt daily to avoid bacterial infection of the intestines from antibiotic use 6. Please call if you have any further questions or concerns
[2018-05-18] MEDS ORDERED: Sodium Chloride 0.9% 1,000 ML IV ONE (19:02)
[2018-05-18] MEDS ORDERED: Sodium Chloride 0.9% 10 ML Syringe FLUSH PRN (19:02)
--- NOTE | 2018-05-18 19:53 | CR ---
[id number] RAD/RAD Chest PA And Lateral EXAM: RAD Chest PA And Lateral INDICATION: CHEST PAIN. COMPARISON: May 28, 2017. DISCUSSION: Median sternotomy wires. Cardiomediastinal silhouette is stable in size and contour. Heart valve placement. No effusion, pneumothorax, or edema. Pulmonary infiltrate at the left lung base. IMPRESSION: Pulmonary infiltrate at left lung base. Follow-up imaging after appropriate therapy in 4-6 weeks is recommended. Benito Molina DO 05/18/18 1952 Thank you for allowing us to participate in the care of your patient.
--- NOTE | 2018-05-18 20:00 | CT ---
[id number] CT/CT Abdomen Pelvis WO IV EXAM: CT Abdomen Pelvis WO IV CLINICAL DATA: ABD PAIN COMPARISON STUDY: March 22, 2015. FINDINGS: Suboptimal evaluation secondary to lack of IV and oral contrast, streak artifact from the patient's hands being in the [id number]. Additionally there is motion artifact. Lung bases are clear. Liver, spleen, gallbladder, pancreas, adrenal glands, and kidneys are unremarkable. No bowel obstruction or inflammation. The appendix is visualized and appears normal. No lymphadenopathy, free fluid, or pneumoperitoneum. Grade 1 retrolisthesis of L2 over L3 with advanced degenerative changes at L2-L3. IMPRESSION: When allowing for limitations as described above. No acute CT findings within the abdomen or pelvis to explain the patient's symptoms. Benito Molina DO 05/18/181958 Thank you for allowing us to participate in the care of your patient.
[2018-05-18 20:07] LABS: CHLORIDE,CL 105 mmol/L (98-107); SODIUM,NA 144 mmol/L (136-145)
[2018-05-18] MEDS ORDERED: Doxycycline 100 MG Cap PO ONE (20:12)
== END 2018-05-18 20:48 | disposition home or self-care (01) ==
LOC: VM.ED 18:49
DX: J18.1 Lobar pneumonia, unspecified organism (principal); Z79.82 Long term (current) use of aspirin; Z79.01 Long term (current) use of anticoagulants; Z79.899 Other long term (current) drug therapy; Z88.8 Allergy status to other drugs, medicaments and biological substances
CPT/HCPCS: 71046; 74176; 80053; 81001; 82550; 83880; 84443; 84484; 85025; 86140; 93005; 96360; 99284; 99285; A9270; J7030

== ENCOUNTER 2021-09-28 11:32 | Emergency (ER) | payer MEDICARE, MEDICAID | END 2021-09-28 12:30 | disposition home or self-care (01) | LOC: VM.ED 11:32 | DX: U07.1 COVID-19 (principal); Z91.048 Other nonmedicinal substance allergy status; Z79.899 Other long term (current) drug therapy; Z79.01 Long term (current) use of anticoagulants; Z79.82 Long term (current) use of aspirin; Z86.16 Personal history of COVID-19 | CPT/HCPCS: 99283; 99284 ==

== ENCOUNTER 2023-06-06 11:48 | Emergency (ER) | payer MEDICARE, MEDICAID | END 2023-06-06 12:14 | disposition home or self-care (01) | LOC: VM.ED 11:48 | DX: T17.310A Gastric contents in larynx causing asphyxiation, initial encounter (principal); Q90.9 Down syndrome, unspecified; Z91.048 Other nonmedicinal substance allergy status; Z79.82 Long term (current) use of aspirin; Z79.01 Long term (current) use of anticoagulants; Z79.899 Other long term (current) drug therapy | CPT/HCPCS: 99283 ==

== ENCOUNTER 2024-01-04 09:27 | Emergency (ER) | payer MEDICARE, MEDICAID | END 2024-01-04 10:26 | disposition home or self-care (01) | LOC: VM.ED 09:27 | DX: M70.22 Olecranon bursitis, left elbow (principal); I50.9 Heart failure, unspecified; E03.9 Hypothyroidism, unspecified; Z95.2 Presence of prosthetic heart valve; Z79.01 Long term (current) use of anticoagulants; Z79.82 Long term (current) use of aspirin; Z79.899 Other long term (current) drug therapy; Z91.048 Other nonmedicinal substance allergy status | CPT/HCPCS: 99283; 99284 ==